=== PATIENT | male | born 1945 | race African-American/Black ===

== ENCOUNTER 2017-10-15 01:40 | Emergency (ER) | payer MEDICARE ==
[~2017-10-15] VITALS: Ht 190.5 cm; Wt 86.2 kg
[2017-10-15] MEDS ORDERED: Sodium Chloride 500ML 500 ML IV ONE (02:15)
[2017-10-15] MEDS ORDERED: LORazepam Inj 2mg/ml 1ml IV ONE (02:15)
[2017-10-15 02:25] VITALS: BP 153/98
[2017-10-15 02:58] LABS: BASOPHILS % (AUTO) 0.9 % (0.0-2.0); EOSINOPHILS % (AUTO) 0.5 % (0.0-3.0); HEMATOCRIT 44.9 % (42.0-52.0); HEMOGLOBIN 15.8 G/DL (14.2-18.0); LYMPHOCYTES % (AUTO) 12.8 % (20.0-45.0); MEAN CORPUSCULAR VOLUME 98 FL (80-99); MONOCYTES % (AUTO) 12.6 % (1.0-10.0); NEUTROPHILS % (AUTO) 73.2 % (45.0-75.0); PLATELET COUNT 103 K/UL (150-450); RED BLOOD COUNT 4.58 M/UL (4.70-6.10); RED CELL DISTRIBUTION WIDTH 10.3 % (11.6-14.8); WHITE BLOOD COUNT 8.5 K/UL (4.8-10.8)
[2017-10-15 03:02] LABS: APPEARANCE,URINE CLEAR; BILIRUBIN, URINE NEGATIVE (NEGATIVE); GLUCOSE, URINE (UA) NEGATIVE (NEGATIVE); KETONES,URINE NEGATIVE (NEGATIVE); LEUKOCYTE ESTERASE ,URINE 1+ (NEGATIVE); NITRITE,URINE NEGATIVE (NEGATIVE); PH,URINE 5 (4.5-8.0); PROTEIN,URINE 1+ (NEGATIVE); UROBILINOGEN,URINE 4 MG/DL (0.0-1.0)
[2017-10-15 03:14] LABS: COLOR,URINE YELLOW
[2017-10-15 03:16] LABS: CHLORIDE 95 MMOL/L (98-107); SODIUM 131 MMOL/L (136-145)
[2017-10-15 03:18] LABS: ANION GAP 9 mmol/L (5-15); BLOOD UREA NITROGEN 37 mg/dL (7-18); CALCIUM 9.7 MG/DL (8.5-10.1); CARBON DIOXIDE 27 MMOL/L (21-32); CREATININE 1.7 MG/DL (0.55-1.30); POTASSIUM 4.6 MMOL/L (3.5-5.1)
[2017-10-15 03:25] VITALS: BP 142/95
[2017-10-15 03:26] LABS: ALANINE AMINOTRANSFERASE 30 U/L (12-78); ALBUMIN 3.7 G/DL (3.4-5.0); ALBUMIN/GLOBULIN RATIO 0.7 (1.0-2.7); ALKALINE PHOSPHATASE 123 U/L (46-116); ASPARTATE AMINO TRANSFERASE 31 U/L (15-37); BILIRUBIN,TOTAL 1.5 MG/DL (0.2-1.0)
[2017-10-15 03:31] LABS: BILIRUBIN,DIRECT 0.6 MG/DL (0.0-0.3)
[2017-10-15] MEDS ORDERED: cefTRIAXone 1 GM in NS 55 ML IVPB ONE (04:15)
[2017-10-15 04:25] VITALS: BP 98/56
--- NOTE | 2017-10-15 04:34 | Emergency Room Report ---
History of Present Illness General Chief Complaint: General Complaint Source: Patient Present Illness HPI 72-year-old male presents ED for evaluation. Patient brought in by EMS. EMS states that patient appears very anxious and is speaking very quickly. Got into an argument with his mother on the phone tonight. Upon arrival patient denies any chest pain or shortness of breath. Denies hearing voices. Denies alcohol or drug use. No other aggravating relieving factors. Denies any other associated symptoms Allergies: Coded Allergies: No Known Allergies (Unverified , 10/15/17) Patient History Past Medical History: AFib Past Surgical History: none Pertinent Family History: none Social History: Denies: smoking, alcohol use, drug use Immunizations: UTD Reviewed Nursing Documentation: PMH: Agreed; PSxH: Agreed Nursing Documentation-PMH Past Medical History: No History, Except For Hx Cardiac Problems: Yes - A. Fib Review of Systems All Other Systems: negative except mentioned in HPI Physical Exam Vital Signs Date Time Temp Pulse Resp B/P (MAP) Pulse Ox O2 Delivery O2 Flow Rate FiO2 10/15/17 01:43 97.8 98 18 157/104 99 Room Air 97.9 Sp02 EP Interpretation: reviewed, normal General Appearance: no apparent distress, alert, GCS 15, non-toxic Head: normocephalic, atraumatic Eyes: bilateral eye normal inspection, bilateral eye PERRL ENT: hearing grossly normal, normal pharynx, no angioedema, normal voice Neck: full range of motion, supple/symm/no masses Respiratory: chest non-tender, lungs clear, normal breath sounds, speaking full sentences Cardiovascular #1: regular rate, rhythm, no edema Cardiovascular #2: 2+ carotid (R), 2+ carotid (L), 2+ radial (R), 2+ radial (L) , 2+ dorsalis pedis (R), 2+ dorsalis pedis (L) Gastrointestinal: normal bowel sounds, non tender, soft, non-distended, no guarding, no rebound Rectal: deferred Genitourinary: normal inspection, no CVA tenderness Musculoskeletal: back normal, gait/station normal, normal range of motion, non- tender Neurologic: alert, responsive, motor strength/tone normal, other - pressured speech Psychiatric: mood/affect normal, no suicidal/homicidal ideation, anxious Reflexes: 3+ bicep (R), 3+ bicep (L), 3+ tricep (R), 3+ tricep (L), 3+ knee (R) , 3+ knee (L) Skin: normal color, no rash, warm/dry, well hydrated Lymphatic: no adenopathy Medical Decision Making Diagnostic Impression: Primary Impression: Altered level of consciousness Additional Impression: ARF (acute renal failure) Qualified Codes: N17.9 - Acute kidney failure, unspecified ER Course Hospital Course 72-year-old male presents ED with pressured speech, altered to baseline Differential diagnoses include: psychosis, delerium, CVA, +ETOH, substance abuse Clinical course Patient placed on stretcher. on temporary staff accountant. After initial history and physical I ordered labs, EKG, chest x-ray, IVFs, CT Brain. ativan labs reviewed- no leukocytosis, hemoglobin/hematocrit ok, BUN/Cr elevated, UA + bacteria, troponins negative, Utox negative, ETOH negative EKG- NSR, repolarization abnormality interpreted by me Chest x-ray- cardiomegaly CT brain-unremarkable Patient had no nuchal rigidity. No fever. No focal neurological deficits or meningitis. Given Rocephin for UA. Spoke to nephew on the phone. He lives in [place]. States that patient is self-sufficient has lived in [place] on his own for the last 30 years. States that patient's behavior and mental status is fairly new and is very abnormal for the patient. Because of insurance patient will be transferred to [facility]. I feel this is a highly complex case requiring extensive working including EKG/Rhythm strip, Xray/CT/US, Blood/urine lab work, repeat exams while in ED, and administration of strong opiates/narcotics for pain control, admission to hospital or close patient follow up. Diagnosis - ALOC, ARF Transferred in serious condition Labs Test 10/15/17 02:20 10/15/17 02:35 White Blood Count 8.5 K/UL (4.8-10.8) Red Blood Count 4.58 M/UL (4.70-6.10) Hemoglobin 15.8 G/DL (14.2-18.0) Hematocrit 44.9 % (42.0-52.0) Mean Corpuscular Volume 98 FL (80-99) Mean Corpuscular Hemoglobin 34.4 PG (27.0-31.0) Mean Corpuscular Hemoglobin Concent 35.1 G/DL (32.0-36.0) Red Cell Distribution Width 10.3 % (11.6-14.8) Platelet Count 103 K/UL (150-450) Mean Platelet Volume 10.2 FL (6.5-10.1) Neutrophils (%) (Auto) 73.2 % (45.0-75.0) Lymphocytes (%) (Auto) 12.8 % (20.0-45.0) Monocytes (%) (Auto) 12.6 % (1.0-10.0) Eosinophils (%) (Auto) 0.5 % (0.0-3.0) Basophils (%) (Auto) 0.9 % (0.0-2.0) Urine Color Yellow Urine Appearance Clear Urine pH 5 (4.5-8.0) Urine Specific [place] 1.025 (1.005-1.035) Urine Protein 1+ (NEGATIVE) Urine Glucose (UA) Negative (NEGATIVE) Urine Ketones Negative (NEGATIVE) Urine Occult Blood 3+ (NEGATIVE) Urine Nitrite Negative (NEGATIVE) Urine Bilirubin Negative (NEGATIVE) Urine Urobilinogen 4 MG/DL (0.0-1.0) Urine Leukocyte Esterase 1+ (NEGATIVE) Urine RBC 10-15 /HPF (0 - 0) Urine WBC 0-2 /HPF (0 - 0) Urine Squamous Epithelial Cells None /LPF (NONE/OCC) Urine Bacteria Moderate /HPF (NONE) Sodium Level 131 MMOL/L (136-145) Potassium Level 4.6 MMOL/L (3.5-5.1) Chloride Level 95 MMOL/L (98-107) Carbon Dioxide Level 27 MMOL/L (21-32) Anion Gap 9 mmol/L (5-15) Blood Urea Nitrogen 37 mg/dL (7-18) Creatinine 1.7 MG/DL (0.55-1.30) Estimat Glomerular Filtration Rate mL/min (>60) Glucose Level 143 MG/DL (74-106) Calcium Level 9.7 MG/DL (8.5-10.1) Total Bilirubin 1.5 MG/DL (0.2-1.0) Direct Bilirubin 0.6 MG/DL (0.0-0.3) Aspartate Amino Transf (AST/SGOT) 31 U/L (15-37) Alanine Aminotransferase (ALT/SGPT) 30 U/L (12-78) Alkaline Phosphatase 123 U/L (46-116) Troponin I 0.004 ng/mL (0.000-0.056) Total Protein 8.9 G/DL (6.4-8.2) Albumin 3.7 G/DL (3.4-5.0) Globulin 5.2 g/dL Albumin/Globulin Ratio 0.7 (1.0-2.7) Salicylates Level < 0.2 ug/mL (2.8-20) Urine Opiates Screen Negative (NEGATIVE) Acetaminophen Level < 2 MCG/ML (10-30) Urine Barbiturates Screen Negative (NEGATIVE) Phencyclidine (PCP) Screen Negative (NEGATIVE) Urine Amphetamines Screen Negative (NEGATIVE) Urine Benzodiazepines Screen Negative (NEGATIVE) Urine Cocaine Screen Negative (NEGATIVE) Urine Marijuana (THC) Screen Negative (NEGATIVE) Serum Alcohol < 3 mg/dL EKG Diagnostic Results Rate: normal Rhythm: NSR ST Segments: other - repolarization abnormality ASA given to the pt in ED: No Rhythm Strip Diag. Results EP Interpretation: yes Rhythm: NSR, no PVC's, no ectopy Chest X-Ray Diagnostic Results Chest X-Ray Diagnostic Results : Chest X-Ray Ordered: Yes # of Views/Limited/Complete: 1 View Indication: Other - ams EP Interpretation: Yes Interpretation: no consolidation, no effusion, no pneumothorax, other - cardiomegaly Impression: Other - cardiomegaly Electronically Signed by: Electronically signed by Mikal Ventura MD CT/MRI/US Diagnostic Results CT/MRI/US Diagnostic Results : Imaging Test Ordered: CT Head Impression no acute process Last Vital Signs Date Time Temp Pulse Resp B/P (MAP) Pulse Ox O2 Delivery O2 Flow Rate FiO2 10/15/17 02:25 97.9 102 18 153/98 99 Room Air 97.9 Status: improved Disposition: XFER SHT-TRM HOSP Condition: Serious Scripts Unable to Obtain Active Prescriptions or Reported Meds Referrals: NOT CHOSEN IPA/,REFERRING (PCP) Mikal [place]ura MD Oct 15, 2017 04:34
[2017-10-15 05:25] VITALS: BP 130/70
[2017-10-15 05:35] VITALS: BP 130/70
--- NOTE | 2017-10-15 08:33 | Diagnostic Imaging Report ---
Indication: Altered mental status Technique: Continuous helical CT scanning of the head was performed utilizing automated exposure control without intravenous contrast material. Axial and coronal reconstructions were obtained. Comparison: None CT dose: Total DLP 1506.06 mGycm; CTDI vol 70.38 mGy Findings: There is no acute intracranial hemorrhage, mass effect or cortical edema. The ventricles, cisterns and sulci are within normal limits for age. Visualized mastoid air cells and paranasal sinuses are unremarkable. No focal lesions of the bony calvarium or soft tissues of the scalp are seen. Impression: No evidence of acute intracranial hemorrhage, mass effect or cortical edema. MRI may be obtained for more sensitive evaluation as clinically indicated. This corresponds with the statrad preliminary report. The CT scanner at [facility] is accredited by the [employer] and the scans are performed using protocols designed to limit radiation exposure to as low as reasonably achievable to attain images of sufficient resolution adequate for diagnostic evaluation.
--- NOTE | 2017-10-15 10:27 | Diagnostic Imaging Report ---
Indication: Altered mental status Technique: XRAY Chest 1v Comparison: None Findings: Heart is enlarged. There is no definite focal airspace consolidation, pleural effusion or pneumothorax. No evidence of alveolar edema. There is scoliosis and degenerative change of the spine. No acute osseous abnormality seen. Impression: Cardiomegaly. No focal airspace consolidation, pleural effusion or pneumothorax. No evidence of alveolar edema.
== END 2017-10-15 05:35 | disposition short-term general hospital (02) ==
LOC: EDBD 01:40 → EMR 02:28
DX: R41.82 Altered mental status, unspecified (principal); N17.9 Acute kidney failure, unspecified; I48.91 Unspecified atrial fibrillation
CPT/HCPCS: 36415; 70450; 71045; 80053; 80307; 81003; 82248; 84484; 85025; 87086; 93005; 96361; 96365; 96375; 99284; G0480; J0696; J7040; 80329; 96360; 96374

== ENCOUNTER 2017-10-15 09:25 | Emergency (ER) | payer MEDICARE ==
[~2017-10-15] VITALS: Ht 182.9 cm; Wt 90.7 kg
[2017-10-15 09:27] VITALS: BP 140/70
[2017-10-15 10:05] LABS: HEMATOCRIT 43.6 % (42.0-52.0); HEMOGLOBIN 14.9 G/DL (14.2-18.0); MEAN CORPUSCULAR VOLUME 100 FL (80-99); PLATELET COUNT 93 K/UL (150-450); RED BLOOD COUNT 4.35 M/UL (4.70-6.10); RED CELL DISTRIBUTION WIDTH 10.5 % (11.6-14.8); WHITE BLOOD COUNT 7.1 K/UL (4.8-10.8)
[2017-10-15 10:14] LABS: ANION GAP 6 mmol/L (5-15); BLOOD UREA NITROGEN 30 mg/dL (7-18); CALCIUM 8.9 MG/DL (8.5-10.1); CARBON DIOXIDE 28 MMOL/L (21-32); CHLORIDE 99 MMOL/L (98-107); CREATININE 1.3 MG/DL (0.55-1.30); SODIUM 133 MMOL/L (136-145)
[2017-10-15 10:22] LABS: APPEARANCE,URINE CLEAR; BILIRUBIN, URINE NEGATIVE (NEGATIVE); COLOR,URINE BROWN; GLUCOSE, URINE (UA) 1+ (NEGATIVE); KETONES,URINE NEGATIVE (NEGATIVE); LEUKOCYTE ESTERASE ,URINE NEGATIVE (NEGATIVE); NITRITE,URINE NEGATIVE (NEGATIVE); PH,URINE 5 (4.5-8.0); PROTEIN,URINE NEGATIVE (NEGATIVE); UROBILINOGEN,URINE 4 MG/DL (0.0-1.0)
--- NOTE | 2017-10-15 10:24 | Diagnostic Imaging Report ---
Indication: Altered mental status Technique: Continuous helical CT scanning of the head was performed utilizing automated exposure control without intravenous contrast material. Axial and coronal reconstructions were obtained. Comparison: Earlier the same day (10/15/2017, 2:31) CT dose: Total DLP 1516.62 mGycm; CTDI vol 70.38 mGy Findings: There is no acute intracranial hemorrhage, mass effect or cortical edema. The ventricles, cisterns and sulci are within normal limits for age and unchanged compared to the prior exam. Visualized mastoid air cells and paranasal sinuses are unremarkable. No focal lesions of the bony calvarium or soft tissues of the scalp are seen. IMPRESSION: No evidence of acute intracranial hemorrhage, mass effect or cortical edema. MRI may be obtained for more sensitive evaluation as clinically indicated. No significant interval change from exam earlier the same day. The CT scanner at [facility] is accredited by the [employer] and the scans are performed using protocols designed to limit radiation exposure to as low as reasonably achievable to attain images of sufficient resolution adequate for diagnostic evaluation.
[2017-10-15 10:27] LABS: ALANINE AMINOTRANSFERASE 28 U/L (12-78); ALBUMIN 3.3 G/DL (3.4-5.0); ALBUMIN/GLOBULIN RATIO 0.7 (1.0-2.7); ALKALINE PHOSPHATASE 112 U/L (46-116); ASPARTATE AMINO TRANSFERASE 31 U/L (15-37); BILIRUBIN,TOTAL 1.3 MG/DL (0.2-1.0)
[2017-10-15 10:38] LABS: BILIRUBIN,DIRECT 0.6 MG/DL (0.0-0.3)
[2017-10-15 10:45] VITALS: BP 132/61
--- NOTE | 2017-10-15 11:45 | Emergency Room Report ---
History of Present Illness General Chief Complaint: Behavioral Complaint Source: Patient Present Illness HPI This patient was discharged from [facility] this morning. The patient is brought in by EMS. Apparently, the patient has been feeling anxious. He states he was speaking with his niece on the phone and she called EMS to bring him to the hospital. The patient keeps talking about a prostate problem. The patient denies chest pain or shortness of breath. Patient denies abdominal pain. He was diagnosed with a urinary tract infection and given Rocephin this morning. I discovered this when I spoke with a [facility] physician entry level sales representative on the phone. The patient has no other complaints. Allergies: Coded Allergies: No Known Allergies (Unverified , 10/15/17) Patient History Past Medical History: see triage record, HTN, AFib Social History: Denies: smoking, alcohol use, drug use Reviewed Nursing Documentation: PMH: Agreed; PSxH: Agreed Nursing Documentation-PMH Past Medical History: No History, Except For Hx Cardiac Problems: Yes - A. Fib Hx Hypertension: Yes Review of Systems All Other Systems: negative except mentioned in HPI Physical Exam Vital Signs Date Time Temp Pulse Resp B/P (MAP) Pulse Ox O2 Delivery O2 Flow Rate FiO2 10/15/17 09:19 60 18 140/70 99 Room Air 10/15/17 10:45 98.5 98.5 Sp02 EP Interpretation: reviewed, normal General Appearance: no apparent distress, alert, GCS 15, non-toxic Head: normocephalic, atraumatic Eyes: bilateral eye normal inspection, bilateral eye PERRL ENT: hearing grossly normal, normal pharynx, no angioedema, normal voice Neck: full range of motion, supple/symm/no masses Respiratory: chest non-tender, lungs clear, normal breath sounds, no respiratory distress, no retraction, no accessory muscle use, speaking full sentences Cardiovascular #1: regular rate, rhythm, no edema Gastrointestinal: normal bowel sounds, non tender, soft, non-distended, no guarding, no rebound Rectal: deferred Musculoskeletal: back normal, gait/station normal, normal range of motion, non- tender Neurologic: alert, oriented x3, responsive, motor strength/tone normal, sensory intact, speech normal Psychiatric: mood/affect normal, no suicidal/homicidal ideation Skin: normal color, no rash, warm/dry, well hydrated Medical Decision Making Diagnostic Impression: Primary Impression: UTI (urinary tract infection) Additional Impression: Behavioral change ER Course This patient has failed outpatient treatment. The patient may have some delirium related to a urinary tract infection. He had been given Rocephin at [facility] this morning. He does not require re-dosing at this time. He lives alone and is unable to function at this point. Possibly this patient needs to undergo psychiatric evaluation versus treatment of his urinary tract infection as an inpatient. The patient was nontoxic. The patient is afebrile. The patient has a negative drug screen and normal head CT. I do not suspect substance abuse. This patient is a [facility] patient was transferred back to [facility] for further management and disposition. Laboratory Tests Test 10/15/17 09:46 10/15/17 10:05 White Blood Count 7.1 K/UL (4.8-10.8) Red Blood Count 4.35 M/UL (4.70-6.10) L Hemoglobin 14.9 G/DL (14.2-18.0) Hematocrit 43.6 % (42.0-52.0) Mean Corpuscular Volume 100 FL (80-99) H Mean Corpuscular Hemoglobin 34.4 PG (27.0-31.0) H Mean Corpuscular Hemoglobin Concent 34.3 G/DL (32.0-36.0) Red Cell Distribution Width 10.5 % (11.6-14.8) L Platelet Count 93 K/UL (150-450) L Mean Platelet Volume 10.2 FL (6.5-10.1) H Neutrophils (%) (Auto) % (45.0-75.0) Lymphocytes (%) (Auto) % (20.0-45.0) Monocytes (%) (Auto) % (1.0-10.0) Eosinophils (%) (Auto) % (0.0-3.0) Basophils (%) (Auto) % (0.0-2.0) Differential Total Cells Counted 100 Neutrophils % (Manual) 64 % (45-75) Lymphocytes % (Manual) 22 % (20-45) Monocytes % (Manual) 12 % (1-10) H Eosinophils % (Manual) 1 % (0-3) Basophils % (Manual) 1 % (0-2) Band Neutrophils 0 % (0-8) Platelet Estimate Decreased L Platelet Morphology Normal Red Blood Cell Morphology Normal Sodium Level 133 MMOL/L (136-145) L Potassium Level 4.0 MMOL/L (3.5-5.1) Chloride Level 99 MMOL/L (98-107) Carbon Dioxide Level 28 MMOL/L (21-32) Anion Gap 6 mmol/L (5-15) Blood Urea Nitrogen 30 mg/dL (7-18) H Creatinine 1.3 MG/DL (0.55-1.30) Estimate Glomerular Filtration Rate mL/min (>60) Glucose Level 100 MG/DL (74-106) Calcium Level 8.9 MG/DL (8.5-10.1) Total Bilirubin 1.3 MG/DL (0.2-1.0) H Direct Bilirubin 0.6 MG/DL (0.0-0.3) H Aspartate Amino Transferase (AST) 31 U/L (15-37) Alanine Aminotransferase (ALT) 28 U/L (12-78) Alkaline Phosphatase 112 U/L (46-116) Troponin I 0.017 ng/mL (0.000-0.056) Total Protein 8.2 G/DL (6.4-8.2) Albumin 3.3 G/DL (3.4-5.0) L Globulin 4.9 g/dL Albumin/Globulin Ratio 0.7 (1.0-2.7) L Thyroid Stimulating Hormone (TSH) 0.870 uiU/mL (0.358-3.740) Serum Alcohol < 3 mg/dL Urine Color Brown Urine Appearance Clear Urine pH 5 (4.5-8.0) Urine Specific [place] 1.025 (1.005-1.035) Urine Protein Negative (NEGATIVE) Urine Glucose (UA) 1+ (NEGATIVE) H Urine Ketones Negative (NEGATIVE) Urine Occult Blood 5+ (NEGATIVE) H Urine Nitrite Negative (NEGATIVE) Urine Bilirubin Negative (NEGATIVE) Urine Urobilinogen 4 MG/DL (0.0-1.0) H Urine Leukocyte Esterase Negative (NEGATIVE) Urine RBC Tntc /HPF (0 - 0) H Urine WBC 0-2 /HPF (0 - 0) Urine Squamous Epithelial Cells Occasional /LPF Urine Bacteria Occasional /HPF (NONE) Urine Opiates Screen Negative (NEGATIVE) Urine Barbiturates Screen Negative (NEGATIVE) Phencyclidine (PCP) Screen Negative (NEGATIVE) Urine Amphetamines Screen Negative (NEGATIVE) Urine Benzodiazepines Screen Negative (NEGATIVE) Urine Cocaine Screen Negative (NEGATIVE) Urine Marijuana (THC) Screen Negative (NEGATIVE) EKG Diagnostic Results Rate: normal Rhythm: other - A.fib ST Segments: no acute changes Rhythm Strip Diag. Results EP Interpretation: yes Rate: 60's Rhythm: no PVC's, no ectopy, other - A.fib CT/MRI/US Diagnostic Results CT/MRI/US Diagnostic Results : Imaging Test Ordered: CT head Impression No acute findings. See official report. Last Vital Signs Date Time Temp Pulse Resp B/P (MAP) Pulse Ox O2 Delivery O2 Flow Rate FiO2 10/15/17 10:45 98.5 68 15 132/61 96 Room Air 98.5 Disposition: XFER SHT-TRM HOSP Condition: Stable Scripts Unable to Obtain Active Prescriptions or Reported Meds Referrals: [facility] (PCP) Debby Peralta DO Oct 15, 2017 11:45
[2017-10-15 11:54] VITALS: BP 110/67
--- NOTE | 2017-10-15 12:27 | Cardiology Report ---
APPROVED REPORT EKG Measurement Heart [id number] A. Fib Moderate voltage criteria for LVH, may be normal variant Borderline ECG
[2017-10-15 13:01] VITALS: BP 110/67
== END 2017-10-15 13:12 | disposition short-term general hospital (02) ==
LOC: EDBD 09:25 → EMR 10:14
DX: N39.0 Urinary tract infection, site not specified (principal); F91.9 Conduct disorder, unspecified; R41.82 Altered mental status, unspecified; I48.91 Unspecified atrial fibrillation; I10 Essential (primary) hypertension
CPT/HCPCS: 36415; 70450; 80053; 80307; 81003; 82248; 84443; 84484; 85007; 85025; 87081; 93005; 99284; G0480; 80329

== ENCOUNTER 2018-02-17 07:40 | Inpatient (IN) | payer MEDICARE ==
[~2018-02-17] VITALS: Ht 190.5 cm; Wt 98.0 kg
[2018-02-17] VITALS (17 sets, daily range): BP systolic 79–119; BP diastolic 35–93
[2018-02-17 08:33] LABS: HEMATOCRIT 30.2 % (42.0-52.0); HEMOGLOBIN 10.2 G/DL (14.2-18.0); MEAN CORPUSCULAR VOLUME 102 FL (80-99); PLATELET COUNT 97 K/UL (150-450); RED BLOOD COUNT 2.97 M/UL (4.70-6.10); RED CELL DISTRIBUTION WIDTH 10.4 % (11.6-14.8); WHITE BLOOD COUNT 8.5 K/UL (4.8-10.8)
[2018-02-17 08:38] LABS: INR 1.5 (0.9-1.1)
[2018-02-17 08:39] LABS: ANION GAP 9 mmol/L (5-15); BLOOD UREA NITROGEN 24 mg/dL (7-18); CALCIUM 8.5 MG/DL (8.5-10.1); CARBON DIOXIDE 23 MMOL/L (21-32); CHLORIDE 106 MMOL/L (98-107); CREATININE 1.3 MG/DL (0.55-1.30); POTASSIUM 4.5 MMOL/L (3.5-5.1); SODIUM 138 MMOL/L (136-145)
[2018-02-17 08:51] LABS: ALANINE AMINOTRANSFERASE 15 U/L (12-78); ALBUMIN 2.8 G/DL (3.4-5.0); ALBUMIN/GLOBULIN RATIO 0.8 (1.0-2.7); ALKALINE PHOSPHATASE 95 U/L (46-116); ASPARTATE AMINO TRANSFERASE 19 U/L (15-37); BILIRUBIN,TOTAL 0.9 MG/DL (0.2-1.0); CREATINE KINASE 62 U/L (26-308)
--- NOTE | 2018-02-17 09:17 | Emergency Room Report ---
History of Present Illness General Chief Complaint: Gastrointestinal Bleed Source: Patient Present Illness HPI Patient is brought in by EMS for lower GI bleeding. He had colon resection and a polyp/adenocarcinoma resection at [facility]. No bleeding since then. He started bleeding this morning and according to paramedics passed about 100 to 150 mils of blood. He was also found him hypotensive and near syncopal. They gave him a fluid bolus in the field. He had improved vital signs laying down and after the fluid bolus. No abdominal pain. He has never needed blood in the past. The patient is on Pradaxa for atrial fibrillation. He has an implanted defibrillator and pacemaker. He denies any chest pain, shortness of breath or palpitations. Denies vomiting. He was dizzy when they tried is sent him up. No dysuria, headache, rashes, joint pain, back pain. 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 Reviewed Nursing Documentation: PMH: Agreed; PSxH: Agreed Nursing Documentation-PMH Past Medical History: No History, Except For Hx Cardiac Problems: Yes - AFIB Hx Hypertension: Yes Hx Pacemaker: Yes Review of Systems All Other Systems: negative except mentioned in HPI Physical Exam Vital Signs Date Time Temp Pulse Resp B/P (MAP) Pulse Ox O2 Delivery O2 Flow Rate FiO2 02/17/18 07:42 97.4 66 16 91/54 97 Room Air 97.3 Sp02 EP Interpretation: reviewed, normal General Appearance: well appearing, no apparent distress, GCS 15 Head: normocephalic Eyes: bilateral eye PERRL, bilateral eye conjunctivae pale ENT: moist mucus membranes Neck: supple Respiratory: lungs clear, other - pacer L Cardiovascular #1: regular rate, rhythm Cardiovascular #2: 2+ radial (R) Gastrointestinal: normal inspection, normal bowel sounds, non tender, no mass, non-distended Rectal: heme positive stool - blood Musculoskeletal: back normal, gait/station normal, normal range of motion Neurologic: alert, oriented x3, grossly normal Psychiatric: mood/affect normal Skin: warm/dry, pallor Procedures Critical Care Time Critical Care Time Total Critical Care Time: 120 min bedside evaluation and treatment excludes procedures (EKG). Reason for critical care: hemorrhagic shock, blood transfusion, repeated evaluations, FFP transfusions Possible complications: hypotension, hypertension, CO, shock, arrhythmias, metabolic acidosis, end organ damage, respiratory failure. Interventions: NS, blood, FFP, attempt to get Pradaxa antidote Course: Patient presents with lower GI bleed post colon resection 02/06. Hypotensive and improved with fluids. Bloods called for. Elevated lactate which improved with fluids. Discussion with pharmacy for antidote to Pradaxa - N/A now. Discussion with Dr. Daly and Darrel. Initially arrange for transfer with CCRT for continued blood. Several episodes of vomiting and syncope improved with laying supine. Arrange for transfusion. Discussed with blood bank. Improved with initial FFP and blood. Passed 300 ml bloody stool. More blood requested and started with second IV. Too unstable to transfer. Discussion with surgeon and admitting MD. Consideration of CT abdomen, but too unstable. Admitted ICU. Consultations: nursing staff, EMS, pharmacy, surgeon, admitting MD, [facility] , blood bank Performed by: Dr. Sierra Tolerated well condition = critical Medical Decision Making Diagnostic Impression: Primary Impression: Lower gastrointestinal hemorrhage Additional Impressions: Alteration in anticoagulation Atrial fibrillation Qualified Codes: I48.2 - Chronic atrial fibrillation Hemorrhagic shock ER Course Patient with lower GI bleed and hypotension post-colon resection on anticoagulation. Differential includes bleeding from polypectomy site, other lower GI bleed, hemorrhagic shock, anticoagulation amongst others. The patient needs to be assessed for whether he needs blood transfusion and reversal of Pradaxa at this time. He will be evaluated with EKG, chest x-ray abdominal films and labs. We will be ready to transfuse if necessary. Clinically he does not present with perforation and the abdominal exam is against needing surgery at this time. EKG with atrial fibrillation nonspecific ST-T wave changes. H&H is 10.2/30.2. White count is normal. Platelets slightly low. INR is 1.5. CMP with elevated BUN/creatinine. Initial lactic acid is 3.4. Chest x-ray with pacemaker otherwise clear. Abdominal series series with no free air and some dilated loops of bowel but no evidence of obstruction. Patient's blood pressures improved with IV hydration. No further bleeding is evidenced at the moment. Discussed with Dr. Daly at [facility]. 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 Pre Hgb was 12.6. Also INR pre was 1.3. Discussed risks and benefits of blood transfusion with patient. Transfusing FFP also. Also called Pharmacy to see about availability of [employer]xib[employer]. Repeat H/H prior to transfusion = 9.4/28.2. Lactate normal. Patient vomited and passed out. Bilious material. Zofran ordered. Still no abdominal pain. No further bleeding. Transient hypotension, improved laying flat. Transient hypotension associated with vomiting resolved with infusion of FFP and laying flat. Discussed with Dr. Rojo. Arranging CCRT with RN so blood can be given during transport. Patient had vomiting episode. After was transiently unresponsive. BP low during that time. Better supine. Another NS bolus started. Passed 200 cc blood per rectum. Second IV started (had been requested). More blood and FFP ordered. Too ill to transfer. Discussed with Dr. Alba and Dr. Dahl. Admit ICU. Another episode of hypotension associated with vomiting. Improved laying flat. Increased rate of transfusion. Consideration of CT abd, but patient needs blood and cardiac monitoring. Condition critical. Laboratory Tests Test 02/17/18 08:00 02/17/18 09:25 White Blood Count 8.5 K/UL (4.8-10.8) 10.4 K/UL (4.8-10.8) Red Blood Count 2.97 M/UL (4.70-6.10) L 2.80 M/UL (4.70-6.10) L Hemoglobin 10.2 G/DL (14.2-18.0) L 9.4 G/DL (14.2-18.0) L Hematocrit 30.2 % (42.0-52.0) L 28.2 % (42.0-52.0) L Mean Corpuscular Volume 102 FL (80-99) H 101 FL (80-99) H Mean Corpuscular Hemoglobin 34.3 PG (27.0-31.0) H 33.5 PG (27.0-31.0) H Mean Corpuscular Hemoglobin Concent 33.8 G/DL (32.0-36.0) 33.2 G/DL (32.0-36.0) Red Cell Distribution Width 10.4 % (11.6-14.8) L 10.3 % (11.6-14.8) L Platelet Count 97 K/UL (150-450) L 99 K/UL (150-450) L Mean Platelet Volume 9.0 FL (6.5-10.1) 9.8 FL (6.5-10.1) Neutrophils (%) (Auto) % (45.0-75.0) % (45.0-75.0) Lymphocytes (%) (Auto) % (20.0-45.0) % (20.0-45.0) Monocytes (%) (Auto) % (1.0-10.0) % (1.0-10.0) Eosinophils (%) (Auto) % (0.0-3.0) % (0.0-3.0) Basophils (%) (Auto) % (0.0-2.0) % (0.0-2.0) Differential Total Cells Counted 100 100 Neutrophils % (Manual) 83 % (45-75) H 82 % (45-75) H Lymphocytes % (Manual) 13 % (20-45) L 8 % (20-45) L Monocytes % (Manual) 4 % (1-10) 10 % (1-10) Eosinophils % (Manual) 0 % (0-3) 0 % (0-3) Basophils % (Manual) 0 % (0-2) 0 % (0-2) Band Neutrophils 0 % (0-8) 0 % (0-8) Platelet Estimate Decreased L Decreased L Platelet Morphology Normal Normal Macrocytosis 1+ 1+ Prothrombin Time 15.4 SEC (9.30-11.50) H Prothrombin Time INR 1.5 (0.9-1.1) H PTT 31 SEC (23-33) Sodium Level 138 MMOL/L (136-145) Potassium Level 4.5 MMOL/L (3.5-5.1) Chloride Level 106 MMOL/L (98-107) Carbon Dioxide Level 23 MMOL/L (21-32) Anion Gap 9 mmol/L (5-15) Blood Urea Nitrogen 24 mg/dL (7-18) H Creatinine 1.3 MG/DL (0.55-1.30) Estimate Glomerular Filtration Rate mL/min (>60) Glucose Level 165 MG/DL (74-106) H Lactic Acid Level 3.40 mmol/L (0.4-2.0) H 1.50 mmol/L (0.66-2.22) Calcium Level 8.5 MG/DL (8.5-10.1) Total Bilirubin 0.9 MG/DL (0.2-1.0) Aspartate Amino Transferase (AST) 19 U/L (15-37) Alanine Aminotransferase (ALT) 15 U/L (12-78) Alkaline Phosphatase 95 U/L (46-116) Total Creatine Kinase 62 U/L (26-308) Troponin I 0.016 ng/mL (0.000-0.056) Total Protein 6.5 G/DL (6.4-8.2) Albumin 2.8 G/DL (3.4-5.0) L Globulin 3.7 g/dL Albumin/Globulin Ratio 0.8 (1.0-2.7) L Lipase 57 U/L (73-393) L EKG Diagnostic Results Rate: normal Rhythm: other - a fib ST Segments: other - NSSTTW changes Rhythm Strip Diag. Results EP Interpretation: yes Rhythm: no PVC's, no ectopy, other - A fib rate 95 Chest X-Ray Diagnostic Results Chest X-Ray Diagnostic Results : Chest X-Ray Ordered: Yes # of Views/Limited/Complete: 1 View Indication: Other EP Interpretation: Yes Interpretation: no consolidation, no effusion, no pneumothorax, other - pacer Impression: No acute disease Electronically Signed by: . Electronic Other X-Ray Diagnostic Results Other X-Ray Diagnostic Results : X-Ray ordered: Abdomen # of Views/Limited Vs Complete: 2 View Indication: Other EP Interpretation: Yes Interpretation: nonspecific bowel gas, no sbo, other - no free air Impression: Other Electronically Signed by: Electronically signed by Gt Sierra MD Last Vital Signs Date Time Temp Pulse Resp B/P (MAP) Pulse Ox O2 Delivery O2 Flow Rate FiO2 02/17/18 20:12 3.0 02/17/18 20:00 Nasal Cannula 02/17/18 20:00 97.9 73 28 94/48 (63) 100 97.9 Status: improved Disposition: ADMITTED INPATIENT Condition: Critical Scripts Unable to Obtain Active Prescriptions or Reported Meds Referrals: NOT CHOSEN MICKY/,REFERRING (PCP) Gt Sierra M.D. Feb 17, 2018 09:17
--- NOTE | 2018-02-17 09:26 | Diagnostic Imaging Report ---
EXAM: XR Chest, 1 View CLINICAL HISTORY: BLD TECHNIQUE: Frontal view of the chest. COMPARISON: Chest x-ray 10/15/17 FINDINGS: Lungs: Unremarkable. No consolidation. Pleural space: Unremarkable. No pneumothorax. Heart: Unremarkable. No cardiomegaly. Mediastinum: Unremarkable. Bones/joints: Unremarkable. Tubes, lines and devices: Cardiac pacemaker. IMPRESSION: No acute findings.
--- NOTE | 2018-02-17 09:29 | Diagnostic Imaging Report ---
EXAM: XR Abdomen, 1 Views CLINICAL HISTORY: BLD TECHNIQUE: Frontal view of the abdomen/pelvis. COMPARISON: No relevant prior studies available. FINDINGS: Gastrointestinal tract: Gaseous distended small bowel and colon. Transverse colon is distended up to 6.5 cm. Maybe an ileus versus obstruction. Bones/joints: Degenerative changes of the spine and bilateral hips. IMPRESSION: Gaseous distended small bowel and colon. Transverse colon is distended up to 6.5 cm. Maybe an ileus versus obstruction.
[2018-02-17 09:48] LABS: HEMATOCRIT 28.2 % (42.0-52.0); HEMOGLOBIN 9.4 G/DL (14.2-18.0); MEAN CORPUSCULAR VOLUME 101 FL (80-99); PLATELET COUNT 99 K/UL (150-450); RED CELL DISTRIBUTION WIDTH 10.3 % (11.6-14.8); WHITE BLOOD COUNT 10.4 K/UL (4.8-10.8)
[2018-02-17 13:28] LABS: APPEARANCE,URINE CLEAR; BILIRUBIN, URINE NEGATIVE (NEGATIVE); GLUCOSE, URINE (UA) NEGATIVE (NEGATIVE); KETONES,URINE NEGATIVE (NEGATIVE); LEUKOCYTE ESTERASE ,URINE 1+ (NEGATIVE); NITRITE,URINE NEGATIVE (NEGATIVE); PH,URINE 5 (4.5-8.0); PROTEIN,URINE 1+ (NEGATIVE); UROBILINOGEN,URINE 1 MG/DL (0.0-1.0)
[2018-02-17 13:41] LABS: COLOR,URINE YELLOW
[2018-02-17] MEDS ORDERED: Atropine Inj 1mg/10ml Syr IVP SCH (16:32)
[2018-02-17 18:10] LABS: HEMATOCRIT 23.4 % (42.0-52.0); HEMOGLOBIN 8.2 G/DL (14.2-18.0); LYMPHOCYTES % (AUTO) 7.4 % (20.0-45.0); MEAN CORPUSCULAR VOLUME 100 FL (80-99); NEUTROPHILS % (AUTO) 85.6 % (45.0-75.0); PLATELET COUNT 79 K/UL (150-450); RED BLOOD COUNT 2.35 M/UL (4.70-6.10); RED CELL DISTRIBUTION WIDTH 13.2 % (11.6-14.8); WHITE BLOOD COUNT 13.1 K/UL (4.8-10.8)
[2018-02-17 18:11] LABS: BASOPHILS % (AUTO) 0.2 % (0.0-2.0); MONOCYTES % (AUTO) 6.8 % (1.0-10.0)
[2018-02-17] MEDS ORDERED: Fleet's Enema 133ml RECTAL SCH ×2 (18:42→19:10)
[2018-02-17] MEDS ORDERED: Nulytely 4L ORAL SCH (19:00)
[2018-02-17] MEDS ORDERED: Phytonadione 10 MG in D5W 55 ML IVPB SCH (20:00)
--- NOTE | 2018-02-17 20:18 | General Progress Note ---
Progress Note Progress Note Surgery: full consult note to follow call to see patient for Lower GI bleed Discussed with GI From report/history had Lower GI procedure approximately 10 days ago at [facility] ( flex sig w/ excision of rectal? polyp with closure) Did well post op. Resumed anticoagulation Pradaxa few days ago Noted BRBPR this AM at 06:00. Since multiple LARGE bloody BM Tachy at times, Bernard at times, Hypotensive. Transfused 3 PRBC, 2 FFP, pending platelets, given vit K At bedside patient positioned and anoscopy performed. >800cc blood evacuated upon insertion of anoscope. Once evacuated rectal vault suctioned. Noted Surgical sutures at anal verge into rectal vault in the posterior midline / left. venous oozing and arterial oozing noted from suture line. Rectal vault/ anus packed with gauze for hemostasis. will actively resuscitate patient in ICU. will re-evaluate in a few hours. need to ensure that bleeding is from suture line or if any procedure done higher up. awaiting reports/chart from [facility]. Currently patient stable. HR in the 80's. BP now 100/46. AAOx3. Check labs now. thank you Jordan Alba Feb 17, 2018 20:18
[2018-02-17] MEDS ORDERED: Lidocaine 1% 10mg/ml/Epi 0.005mg/ml 30ml vial INJ ONE (20:30)
--- NOTE | 2018-02-17 20:31 | General Progress Note ---
Assessment/Plan Assessment/Plan GI CONSULT Discussed patient's history and data with RN and PMD. Initially planned for an emergency colonoscopy for ongoing GI bleeding. Placed a call to [facility] and discussed with ER ([phone]) Patient (Latty MR [id number]) had a flexible sigmoidoscopy by Dr. Laurie Wong on 02/06/18 A large rectal polyp was excised and the polypectomy site was sutured Pathology showed a 2.1 x 1.2 x 0.2 cm polyp, with "squamoglandular tissue" seen on pathology Discussed with Dr. Alba who will perform a trans-anal evaluation and repair of bleeding site. Orders for transfusion written. Will monitor and follow Thank you. Viviana Quinn MD Subjective Allergies: Coded Allergies: No Known Allergies (Unverified , 10/15/17) Objective Last 24 Hour Vital Signs Date Time Temp Pulse Resp B/P (MAP) Pulse Ox O2 Delivery O2 Flow Rate FiO2 02/17/18 20:12 3.0 02/17/18 18:00 80 25 84/49 (61) 100 02/17/18 17:00 93 20 86/60 (69) 100 02/17/18 16:11 Nasal Cannula 3.0 02/17/18 16:00 98.1 45 21 103/49 (67) 100 98.1 02/17/18 15:47 98.2 57 23 86/55 100 Room Air 98.2 02/17/18 15:45 98.2 57 23 86/55 100 Room Air 98.2 02/17/18 14:50 98.0 68 28 99/76 100 Room Air 98.0 02/17/18 14:25 98.4 59 28 79/35 100 Room Air 98.4 02/17/18 14:10 98.0 61 24 85/52 100 Room Air 98.0 02/17/18 13:05 97.7 104 26 117/55 100 Room Air 97.7 02/17/18 13:05 97.7 101 29 97.7 02/17/18 12:50 98.2 72 20 112/70 100 Room Air 98.2 02/17/18 11:50 97.4 60 20 102/52 100 Room Air 97.4 02/17/18 10:49 97.0 87 18 103/63 100 Room Air 97.0 02/17/18 09:02 97.6 88 21 117/60 100 Room Air 97.6 02/17/18 07:42 97.4 66 16 91/54 97 Room Air 97.3 Laboratory Tests 02/17/18 08:00: White Blood Count 8.5, Red Blood Count 2.97L, Hemoglobin 10.2L, Hematocrit 30.2L , Mean Corpuscular Volume 102H, Mean Corpuscular Hemoglobin 34.3H, Mean Corpuscular Hemoglobin Concent 33.8, Red Cell Distribution Width 10.4L, Platelet Count 97L, Mean Platelet Volume 9.0, Neutrophils (%) (Auto) , Lymphocytes (%) (Auto) , Monocytes (%) (Auto) , Eosinophils (%) (Auto) , Basophils (%) (Auto) , Differential Total Cells Counted 100, Neutrophils % ( Manual) 83H, Lymphocytes % (Manual) 13L, Monocytes % (Manual) 4, Eosinophils % ( Manual) 0, Basophils % (Manual) 0, Band Neutrophils 0, Platelet Estimate DecreasedL, Platelet Morphology Normal, Macrocytosis 1+, Prothrombin Time 15.4H , Prothromb Time International Ratio 1.5H, Activated Partial Thromboplast Time 31, Sodium Level 138, Potassium Level 4.5, Chloride Level 106, Carbon Dioxide Level 23, Anion Gap 9, Blood Urea Nitrogen 24H, Creatinine 1.3, Estimat Glomerular Filtration Rate , Glucose Level 165H, Lactic Acid Level 3.40H, Calcium Level 8.5, Total Bilirubin 0.9, Aspartate Amino Transf (AST/SGOT) 19, Alanine Aminotransferase (ALT/SGPT) 15, Alkaline Phosphatase 95, Total Creatine Kinase 62, Troponin I 0.016, Total Protein 6.5, Albumin 2.8L, Globulin 3.7, Albumin/Globulin Ratio 0.8L, Lipase 57L 02/17/18 09:25: White Blood Count 10.4, Red Blood Count 2.80L, Hemoglobin 9.4L, Hematocrit 28.2L , Mean Corpuscular Volume 101H, Mean Corpuscular Hemoglobin 33.5H, Mean Corpuscular Hemoglobin Concent 33.2, Red Cell Distribution Width 10.3L, Platelet Count 99L, Mean Platelet Volume 9.8, Neutrophils (%) (Auto) , Lymphocytes (%) (Auto) , Monocytes (%) (Auto) , Eosinophils (%) (Auto) , Basophils (%) (Auto) , Differential Total Cells Counted 100, Neutrophils % ( Manual) 82H, Lymphocytes % (Manual) 8L, Monocytes % (Manual) 10, Eosinophils % ( Manual) 0, Basophils % (Manual) 0, Band Neutrophils 0, Platelet Estimate DecreasedL, Platelet Morphology Normal, Macrocytosis 1+, Lactic Acid Level 1.50 02/17/18 13:20: Urine Color Yellow, Urine Appearance Clear, Urine pH 5, Urine Specific [place] 1.025, Urine Protein 1+H, Urine Glucose (UA) Negative, Urine Ketones Negative, Urine Blood Negative, Urine Nitrite Negative, Urine Bilirubin Negative, Urine Urobilinogen 1H, Urine Leukocyte Esterase 1+H, Urine RBC 0, Urine WBC 0-2, Urine Squamous Epithelial Cells Occasional, Urine Bacteria Occasional, Urine Mucus Occasional 02/17/18 17:40: White Blood Count 13.1H, Red Blood Count 2.35L, Hemoglobin 8.2L, Hematocrit 23.4L, Mean Corpuscular Volume 100H, Mean Corpuscular Hemoglobin 34.7H, Mean Corpuscular Hemoglobin Concent 34.8, Red Cell Distribution Width 13.2, Platelet Count 79L, Mean Platelet Volume 7.8, Neutrophils (%) (Auto) 85.6H, Lymphocytes ( %) (Auto) 7.4L, Monocytes (%) (Auto) 6.8, Eosinophils (%) (Auto) 0.0, Basophils (%) (Auto) 0.2 02/17/18 18:35: Digoxin Level 0.5 Height (Feet): 6 Height (Inches): 3.00 Weight (Pounds): 197 Viviana Quinn MD Feb 17, 2018 20:31
[2018-02-17] MEDS ORDERED: Surgicel 4in x 8in TOPIC ONE (20:45)
[2018-02-17 20:49] LABS: HEMATOCRIT 25.7 % (42.0-52.0); HEMOGLOBIN 8.7 G/DL (14.2-18.0); MEAN CORPUSCULAR VOLUME 99 FL (80-99); PLATELET COUNT 86 K/UL (150-450); RED BLOOD COUNT 2.59 M/UL (4.70-6.10); RED CELL DISTRIBUTION WIDTH 13.4 % (11.6-14.8); WHITE BLOOD COUNT 14.7 K/UL (4.8-10.8)
[2018-02-17 20:57] LABS: BASOPHILS % (AUTO) 0.3 % (0.0-2.0); LYMPHOCYTES % (AUTO) 7.1 % (20.0-45.0); MONOCYTES % (AUTO) 5.6 % (1.0-10.0); NEUTROPHILS % (AUTO) 87.1 % (45.0-75.0)
[2018-02-17] MEDS ORDERED: Lidocaine 1% 10mg/ml/Epi 0.005mg/ml 30ml vial INJ SCH (21:00)
[2018-02-17] MEDS: Pantoprazole Inj IVP SCH (21:00)
[2018-02-17 21:05] LABS: ANION GAP 9 mmol/L (5-15); BLOOD UREA NITROGEN 29 mg/dL (7-18); CALCIUM 7.6 MG/DL (8.5-10.1); CARBON DIOXIDE 23 MMOL/L (21-32); CHLORIDE 110 MMOL/L (98-107); CREATININE 1.2 MG/DL (0.55-1.30); POTASSIUM 4.8 MMOL/L (3.5-5.1); SODIUM 142 MMOL/L (136-145)
[2018-02-17 21:08] LABS: INR 1.4 (0.9-1.1)
[2018-02-17 21:15] LABS: ALANINE AMINOTRANSFERASE < 6 U/L (12-78); ALBUMIN 2.3 G/DL (3.4-5.0); ALBUMIN/GLOBULIN RATIO 0.8 (1.0-2.7); ALKALINE PHOSPHATASE 73 U/L (46-116); ASPARTATE AMINO TRANSFERASE 13 U/L (15-37); BILIRUBIN,TOTAL 1.4 MG/DL (0.2-1.0)
[2018-02-17 21:23] LABS: BILIRUBIN,DIRECT 0.3 MG/DL (0.0-0.3)
--- NOTE | 2018-02-17 22:59 | Pre-Procedure Note/Attestation ---
Pre-Procedure Note/Attestation Complete Prior to Procedure Planned Procedure: not applicable Procedure Narrative: Examination Under Anesthesia / Rigid sigmoidoscopy / Hemostasis of Lower GI bleeding Indications for Procedure Pre-Operative Diagnosis: Lower GI bleeding Attestation I attest that I discussed the nature of the procedure; its benefits; risks and complications; and alternatives (and the risks and benefits of such alternatives ), prior to the procedure, with the patient (or the patient's legal pharmaceutical sales representative). I attest that, if there was a reasonable possibility of needing a blood transfusion, the patient (or the patient's legal pharmaceutical sales representative) was given the [facility] standardized written summary, pursuant to the Graham Leanna Blood Safety Act ([place] Health and Safety Code # 1645, as amended). I attest that I re-evaluated the patient just prior to the surgery and that there has been no change in the patient's H&P, except as documented below: Jordan Alba Feb 17, 2018 22:59
--- NOTE | 2018-02-17 22:59 | General Progress Note ---
Progress Note Progress Note Surgery: patient seen and examined. Rectal hemostasis gauze removed. old thick blood with almost clot evacuated approximately 100cc. anoscopy performed and no active bleeding noted just minimal oozing. surgicel packing placed with gauze in rectal vault over area of prior surgical site bleeding. labs reviewed. HR 70's. BP improved. patient states he is feeling better -NPO -IV fluids -PRBC -Consent for Examination Under Anesthesia / Rigid sigmoidoscopy / Hemostasis -OR in AM thank you Jordan Alba Feb 17, 2018 22:59
[2018-02-18] VITALS (23 sets, daily range): BP systolic 112–149; BP diastolic 35–97
--- NOTE | 2018-02-18 02:45 | History and Physical Report ---
DATE OF ADMISSION: 02/17/2018 REASON FOR ADMISSION: GI bleed. HISTORY OF PRESENT ILLNESS: This is a 72-year-old male who recently underwent a procedure by rectal surgeon. The patient has had persistent GI bleeding and the patient is on Pradaxa. The patient was also noted to be bradycardic. The patient was given IV hydration and was given FFP as well as transfusion in the emergency room. The patient was noted to be hypotensive and was not considered to be transferable. The patient does have history of atrial fibrillation and does have a defibrillator pacemaker. The patient now admitted. The patient was seen much earlier. However, discussion with GI and Cardiology has been undertaken subsequently and the patient noted to have persistent bleeding and General Surgery has been contacted. Hematology as well has been contacted for further platelet transfusion, vitamin K, and antidote for Pradaxa. PAST MEDICAL HISTORY: As above, notable for atrial fibrillation, AICD, polyps or has possible adenocarcinoma status post resection. MEDICATIONS: Reviewed. ALLERGIES: Reviewed. PHYSICAL EXAMINATION: GENERAL: An ill-appearing male. VITAL SIGNS: In the emergency room, blood pressure 91/54, pulse 66, respirations 16, and temperature is 97.4. HEENT: Overall negative. LUNGS: Moderate air entry. CARDIAC: Slightly bradycardic when seen. ABDOMEN: Soft, nondistended. EXTREMITIES: No edema. RECTAL: Per the ER physician, heme-positive stools. LABORATORY DATA: On admission, white count 8.5, hemoglobin 10, platelets 97,000. Chemistries noted, BUN 24, creatinine 1.3, albumin 2.8. INR is 1.5. Abdominal x-ray, gaseous distention in small bowel and colon. IMPRESSION: GI bleed, coagulopathy, atrial fibrillation, bradycardia, and hypotension. RECOMMENDATION: GI, General Surgery, Hematology, Cardiology all contacted and aware. Monitor hemodynamics. Pressors as needed. Transfuse FFP, PRBC, platelets, vitamin K, and antidote to Pradaxa. Antidote to digoxin also ordered. Hydration. General Surgery evaluation and recommendation. Monitor clinically and we will give atropine p.r.n. if needed for significant bradycardia. The patient is critical and not transferable at this time. Gary Ishaaya, M.D. DR: Laura JOB#: [id number] CC:
[2018-02-18 05:30] LABS: HEMATOCRIT 29.3 % (42.0-52.0); HEMOGLOBIN 10.2 G/DL (14.2-18.0); MEAN CORPUSCULAR VOLUME 94 FL (80-99); PLATELET COUNT 88 K/UL (150-450); RED BLOOD COUNT 3.12 M/UL (4.70-6.10); RED CELL DISTRIBUTION WIDTH 13.9 % (11.6-14.8); WHITE BLOOD COUNT 19.1 K/UL (4.8-10.8)
[2018-02-18 05:45] LABS: ALANINE AMINOTRANSFERASE 15 U/L (12-78); ALBUMIN 2.6 G/DL (3.4-5.0); ALBUMIN/GLOBULIN RATIO 0.8 (1.0-2.7); ALKALINE PHOSPHATASE 78 U/L (46-116); ANION GAP 9 mmol/L (5-15); ASPARTATE AMINO TRANSFERASE 24 U/L (15-37); BILIRUBIN,TOTAL 1.2 MG/DL (0.2-1.0); BLOOD UREA NITROGEN 33 mg/dL (7-18); CALCIUM 7.8 MG/DL (8.5-10.1); CARBON DIOXIDE 23 MMOL/L (21-32); CHLORIDE 111 MMOL/L (98-107); CREATININE 1.1 MG/DL (0.55-1.30); POTASSIUM 4.8 MMOL/L (3.5-5.1); SODIUM 143 MMOL/L (136-145)
[2018-02-18 05:47] LABS: BILIRUBIN,DIRECT 0.3 MG/DL (0.0-0.3); INR 1.4 (0.9-1.1)
--- NOTE | 2018-02-18 07:42 | Consultation ---
Consult Note Consult Note Hematology Consult DOS: 02/18/18 REQ : Mio Dahl RFC: Anemia of Gi bleed, pradaxa reversal HPI 72 y old male brought in by EMS for lower GI bleeding. He had colon resection 02/06 and a polyp/adenocarcinoma resection at [place]. No bleeding since then. He started bleeding this 02/17/18 and according to paramedics passed about 100 to 150 mils of blood. He was also found him hypotensive and near syncopal. They gave him a fluid bolus in the field. He had improved vital signs laying down and after the fluid bolus. No abdominal pain.He has never needed blood in the past. The patient is on Pradaxa for atrial fibrillation. He has an implanted defibrillator and pacemaker. He denies any chest pain, shortness of breath or palpitations. Denies vomiting. He was dizzy when they tried is sent him up. No dysuria, headache, rashes, joint pain, back pain. Last night, Dr. Alba came in and performed a anoscope surgical eval, large amount of blood 800cc evacuated with great force, apparently took 4 personnel to clean out patients blood on the bed which was completely soaked. Ordered FFP , vit K and platelets as well as pradaxabind which was very difficult to get given large cost of medication, apparently $6k/dose, at this time still recommend this medication given ongoing bleeding. Allergies: No Known Allergies (Unverified , 10/15/17) Past Medical History: see triage record Social History: Denies: smoking, alcohol use, drug use Social History Narrative Born [place]. Worked on cars Reviewed Nursing Documentation: PMH: Agreed; PSxH: Agreed Past Medical History: No History, Except For Hx Cardiac Problems: Yes - AFIB Hx Hypertension: Yes Hx Pacemaker: Yes ER ROS - General Review of Systems All Other Systems: negative except mentioned in HPI ER Physical Exam - General Physical Exam Last 24 Hour Vital Signs Date Time Temp Pulse Resp B/P (MAP) Pulse Ox O2 Delivery O2 Flow Rate FiO2 02/18/18 07:00 56 23 120/50 (73) 100 02/18/18 06:00 48 22 117/51 (73) 100 02/18/18 05:00 58 20 112/52 (72) 100 02/18/18 04:00 3.0 02/18/18 04:00 57 02/18/18 04:00 Nasal Cannula 4.0 02/18/18 04:00 98.6 69 24 126/49 (74) 100 98.6 02/18/18 03:00 59 20 115/53 (73) 100 02/18/18 02:00 56 17 120/43 (68) 100 02/18/18 01:00 58 19 116/59 (78) 100 02/18/18 00:00 3.0 02/18/18 00:00 58 02/18/18 00:00 98.4 65 22 118/46 (70) 100 98.4 02/18/18 00:00 Nasal Cannula 4.0 02/17/18 23:00 66 22 80/58 (65) 100 02/17/18 22:00 74 24 119/93 (102) 100 02/17/18 21:00 71 25 98/49 (65) 100 02/17/18 20:12 3.0 02/17/18 20:00 Nasal Cannula 4.0 02/17/18 20:00 3.0 02/17/18 20:00 97.9 73 28 94/48 (63) 100 97.9 02/17/18 20:00 65 02/17/18 19:00 80 25 100/39 (59) 100 02/17/18 18:00 80 25 84/49 (61) 100 02/17/18 17:00 93 20 86/60 (69) 100 02/17/18 16:11 Nasal Cannula 3.0 02/17/18 16:00 98.1 45 21 103/49 (67) 100 98.1 02/17/18 15:47 98.2 57 23 86/55 100 Room Air 98.2 02/17/18 15:45 98.2 57 23 86/55 100 Room Air 98.2 02/17/18 14:50 98.0 68 28 99/76 100 Room Air 98.0 02/17/18 14:25 98.4 59 28 79/35 100 Room Air 98.4 02/17/18 14:10 98.0 61 24 85/52 100 Room Air 98.0 02/17/18 13:05 97.7 104 26 117/55 100 Room Air 97.7 02/17/18 13:05 97.7 101 29 97.7 02/17/18 12:50 98.2 72 20 112/70 100 Room Air 98.2 02/17/18 11:50 97.4 60 20 102/52 100 Room Air 97.4 02/17/18 10:49 97.0 87 18 103/63 100 Room Air 97.0 02/17/18 09:02 97.6 88 21 117/60 100 Room Air 97.6 02/17/18 07:42 97.4 66 16 91/54 97 Room Air 97.3 Sp02 EP Interpretation: reviewed, normal General Appearance: well appearing, GCS 15 Head: normocephalic Eyes: bilateral eye PERRL, bilateral eye conjunctivae pale ENT: moist mucus membranes Neck: supple Respiratory: lungs clear, other - pacer L Cardiovascular #1: regular rate, rhythm, no mgr Gastrointestinal: normal inspection, normal bowel sounds, non tender, no mass, nd Rectal: heme positive stool - blood Musculoskeletal: back normal, gait/station normal, normal range of motion Neurologic: alert, oriented x3 Psychiatric: mood/affect normal Skin: warm/dry, pallor Laboratory Tests Test 02/17/18 08:00 02/17/18 09:25 White Blood Count 8.5 K/UL (4.8-10.8) 10.4 K/UL (4.8-10.8) Red Blood Count 2.97 M/UL (4.70-6.10) L 2.80 M/UL (4.70-6.10) L Hemoglobin 10.2 G/DL (14.2-18.0) L 9.4 G/DL (14.2-18.0) L Hematocrit 30.2 % (42.0-52.0) L 28.2 % (42.0-52.0) L Mean Corpuscular Volume 102 FL (80-99) H 101 FL (80-99) H Mean Corpuscular Hemoglobin 34.3 PG (27.0-31.0) H 33.5 PG (27.0-31.0) H Mean Corpuscular Hemoglobin Concent 33.8 G/DL (32.0-36.0) 33.2 G/DL (32.0-36.0) Red Cell Distribution Width 10.4 % (11.6-14.8) L 10.3 % (11.6-14.8) L Platelet Count 97 K/UL (150-450) L 99 K/UL (150-450) L Mean Platelet Volume 9.0 FL (6.5-10.1) 9.8 FL (6.5-10.1) Neutrophils (%) (Auto) % (45.0-75.0) % (45.0-75.0) Lymphocytes (%) (Auto) % (20.0-45.0) % (20.0-45.0) Monocytes (%) (Auto) % (1.0-10.0) % (1.0-10.0) Eosinophils (%) (Auto) % (0.0-3.0) % (0.0-3.0) Basophils (%) (Auto) % (0.0-2.0) % (0.0-2.0) Differential Total Cells Counted 100 100 Neutrophils % (Manual) 83 % (45-75) H 82 % (45-75) H Lymphocytes % (Manual) 13 % (20-45) L 8 % (20-45) L Monocytes % (Manual) 4 % (1-10) 10 % (1-10) Eosinophils % (Manual) 0 % (0-3) 0 % (0-3) Basophils % (Manual) 0 % (0-2) 0 % (0-2) Band Neutrophils 0 % (0-8) 0 % (0-8) Platelet Estimate Decreased L Decreased L Platelet Morphology Normal Normal Macrocytosis 1+ 1+ Prothrombin Time 15.4 SEC (9.30-11.50) H Prothrombin Time INR 1.5 (0.9-1.1) H PTT 31 SEC (23-33) Sodium Level 138 MMOL/L (136-145) Potassium Level 4.5 MMOL/L (3.5-5.1) Chloride Level 106 MMOL/L (98-107) Carbon Dioxide Level 23 MMOL/L (21-32) Anion Gap 9 mmol/L (5-15) Blood Urea Nitrogen 24 mg/dL (7-18) H Creatinine 1.3 MG/DL (0.55-1.30) Estimate Glomerular Filtration Rate mL/min (>60) Glucose Level 165 MG/DL (74-106) H Lactic Acid Level 3.40 mmol/L (0.4-2.0) H 1.50 mmol/L (0.66-2.22) Calcium Level 8.5 MG/DL (8.5-10.1) Total Bilirubin 0.9 MG/DL (0.2-1.0) Aspartate Amino Transferase (AST) 19 U/L (15-37) Alanine Aminotransferase (ALT) 15 U/L (12-78) Alkaline Phosphatase 95 U/L (46-116) Total Creatine Kinase 62 U/L (26-308) Troponin I 0.016 ng/mL (0.000-0.056) Total Protein 6.5 G/DL (6.4-8.2) Albumin 2.8 G/DL (3.4-5.0) L Globulin 3.7 g/dL Albumin/Globulin Ratio 0.8 (1.0-2.7) L Lipase 57 U/L (73-393) L Assessment and Recs: # Anticoagulant (pradaxa) related bleeding -- he has been on pradaxa prior to admission, is a poor historian, difficult to obtain exact history of when he took the last dose, but given ongoing profuse bleeding, very likely was taking pradaxa right up to hospitalization --> FFP, prbc, platelets have been transfused --> has been given vitamin K 10mg IV x 1 --> have ordered pradaxabind to reverse bleed however is very difficult to obtain given we do not have it in the pharmacy --> monitor cbc and obtain thrombocytopenia workup --> hemostasis, appreciate gi and surgical recs --> IN ICU AT THIS TIME # Lower gastrointestinal hemorrhage due to pradaxa --> anemia w.u has been reviewed --> should improve longer patient is off pradaxa # Thrombocytopenia with a low platelets --> have ordered for hepatitis panel, hiv, us abd --> INR reversal # Alteration in anticoagulation --> hold off pradaxa at this time, do not administer it # Coagulopathy with a elevated INR is 1.5. CMP with elevated BUN/creatinine. Initial lactic acid is 3.4. --> vit K prn # Chronic atrial fibrillation --> restart anticoagulation in future once bleeding resolves # Hemorrhagic shock --> IVF appreciated # post-colon resection on anticoagulation. --> surgical recs appreciated Greatly appreciate consultation! Castillo Harris MD Feb 18, 2018 07:42
[2018-02-18] MEDS ORDERED: Lidocaine HCl 2% Jelly 5ml Tube TOPIC ONE (07:45)
[2018-02-18] MEDS ORDERED: Lidocaine 1% 10mg/ml/Epi 0.005mg/ml 30ml vial INJ ONE (07:46)
--- NOTE | 2018-02-18 07:46 | Anethesia Preoperative Eval ---
Anesthesia Pre-op PMH/ROS General Date of Evaluation: Feb 18, 2018 Time of Evaluation: 09:10 Anesthesiologist: Donavon ASA Score: ASA 3 Mallampati Score Class I : Soft palate, uvula, fauces, pillars visible Class II: Soft palate, uvula, fauces visible Class III: Soft palate, base of uvula visible Class IV: Only hard plate visible Mallampati Classification: Class II Surgeon: Parth Diagnosis: GI bleed Surgical Procedure: Sigmoidoscopy, hemostatis Allergies: Coded Allergies: No Known Allergies (Unverified , 10/15/17) Medications: see eMAR Patient NPO?: Yes NPO Date: Feb 16, 2018 NPO Time: 1200 Past Medical History Cardiovascular: Reports: arrhythmia - A-fib now with debrillator/PM; Denies: HTN, CAD, GA, valve dz, other Pulmonary: Denies: asthma, COPD, GISELLA, other Gastrointestinal/Genitourinary: Denies: GERD, CRI, ESRD, other Neurologic/Psychiatric: Denies: dementia, CVA, depression/anxiety, TIA, other Endocrine: Denies: DM, hypothyroidism, steroids, other HEENT: Denies: cataract (L), cataract (R), glaucoma, OUZINKIE (L), OUZINKIE (R), other Hematology/Immune: Reports: anemia, bleeding disorder; Denies: DVT, other Musculoskeletal/Integumentary: Denies: OA, RA, DJD, DDD, edema, other PMH Narrative: A-fib now with defibrillatory/PM PSxH Narrative: Excision of coon polyp, PM/defibrillator Anesthesia Pre-op Phys. Exam Physician Exam Last Vital Signs Date Time Temp Pulse Resp B/P (MAP) Pulse Ox O2 Delivery O2 Flow Rate FiO2 02/18/18 07:00 56 23 120/50 (73) 100 02/18/18 04:00 3.0 02/18/18 04:00 Nasal Cannula 02/18/18 04:00 98.6 98.6 Neurologic: CN 2-12 intact Cardiovascular: no M/R/G Gastrointestinal: S/NT/ND Airway Exam Mallampati Score: Class II MO: full ROM: full Dentures: upper Anesthesia Pre-op A/P Labs Hematology Test 02/17/18 08:00 02/17/18 09:25 02/17/18 17:40 02/17/18 20:30 White Blood Count 8.5 K/UL (4.8-10.8) 10.4 K/UL (4.8-10.8) 13.1 K/UL (4.8-10.8) H 14.7 K/UL (4.8-10.8) H Red Blood Count 2.97 M/UL (4.70-6.10) L 2.80 M/UL (4.70-6.10) L 2.35 M/UL (4.70-6.10) L 2.59 M/UL (4.70-6.10) L Hemoglobin 10.2 G/DL (14.2-18.0) L 9.4 G/DL (14.2-18.0) L 8.2 G/DL (14.2-18.0) L 8.7 G/DL (14.2-18.0) L Hematocrit 30.2 % (42.0-52.0) L 28.2 % (42.0-52.0) L 23.4 % (42.0-52.0) L 25.7 % (42.0-52.0) L Mean Corpuscular Volume 102 FL (80-99) H 101 FL (80-99) H 100 FL (80-99) H 99 FL (80-99) Mean Corpuscular Hemoglobin 34.3 PG (27.0-31.0) H 33.5 PG (27.0-31.0) H 34.7 PG (27.0-31.0) H 33.7 PG (27.0-31.0) H Mean Corpuscular Hemoglobin Concent 33.8 G/DL (32.0-36.0) 33.2 G/DL (32.0-36.0) 34.8 G/DL (32.0-36.0) 34.0 G/DL (32.0-36.0) Red Cell Distribution Width 10.4 % (11.6-14.8) L 10.3 % (11.6-14.8) L 13.2 % (11.6-14.8) 13.4 % (11.6-14.8) Platelet Count 97 K/UL (150-450) L 99 K/UL (150-450) L 79 K/UL (150-450) L 86 K/UL (150-450) L Mean Platelet Volume 9.0 FL (6.5-10.1) 9.8 FL (6.5-10.1) 7.8 FL (6.5-10.1) 7.4 FL (6.5-10.1) Neutrophils (%) (Auto) % (45.0-75.0) % (45.0-75.0) 85.6 % (45.0-75.0) H 87.1 % (45.0-75.0) H Lymphocytes (%) (Auto) % (20.0-45.0) % (20.0-45.0) 7.4 % (20.0-45.0) L 7.1 % (20.0-45.0) L Monocytes (%) (Auto) % (1.0-10.0) % (1.0-10.0) 6.8 % (1.0-10.0) 5.6 % (1.0-10.0) Eosinophils (%) (Auto) % (0.0-3.0) % (0.0-3.0) 0.0 % (0.0-3.0) 0.0 % (0.0-3.0) Basophils (%) (Auto) % (0.0-2.0) % (0.0-2.0) 0.2 % (0.0-2.0) 0.3 % (0.0-2.0) Differential Total Cells Counted 100 100 Neutrophils % (Manual) 83 % (45-75) H 82 % (45-75) H Lymphocytes % (Manual) 13 % (20-45) L 8 % (20-45) L Monocytes % (Manual) 4 % (1-10) 10 % (1-10) Eosinophils % (Manual) 0 % (0-3) 0 % (0-3) Basophils % (Manual) 0 % (0-2) 0 % (0-2) Band Neutrophils 0 % (0-8) 0 % (0-8) Platelet Estimate Decreased L Decreased L Platelet Morphology Normal Normal Macrocytosis 1+ 1+ Test 02/18/18 04:00 White Blood Count 19.1 K/UL (4.8-10.8) H Red Blood Count 3.12 M/UL (4.70-6.10) L Hemoglobin 10.2 G/DL (14.2-18.0) L Hematocrit 29.3 % (42.0-52.0) L Mean Corpuscular Volume 94 FL (80-99) Mean Corpuscular Hemoglobin 32.7 PG (27.0-31.0) H Mean Corpuscular Hemoglobin Concent 34.8 G/DL (32.0-36.0) Red Cell Distribution Width 13.9 % (11.6-14.8) Platelet Count 88 K/UL (150-450) L Mean Platelet Volume 8.4 FL (6.5-10.1) Neutrophils (%) (Auto) % (45.0-75.0) Lymphocytes (%) (Auto) % (20.0-45.0) Monocytes (%) (Auto) % (1.0-10.0) Eosinophils (%) (Auto) % (0.0-3.0) Basophils (%) (Auto) % (0.0-2.0) Neutrophils % (Manual) Pending Lymphocytes % (Manual) Pending Platelet Estimate Pending Platelet Morphology Pending Coagulation Test 02/17/18 08:00 02/17/18 20:30 02/18/18 04:00 Prothrombin Time 15.4 SEC (9.30-11.50) H 14.5 SEC (9.30-11.50) H 14.5 SEC (9.30-11.50) H Prothromb Time International Ratio 1.5 (0.9-1.1) H 1.4 (0.9-1.1) H 1.4 (0.9-1.1) H Activated Partial Thromboplast Time 31 SEC (23-33) 33 SEC (23-33) 22 SEC (23-33) L Fibrinogen 187 mg/dL (200-400) L Chemistry Test 02/17/18 08:00 02/17/18 09:25 02/17/18 20:30 02/18/18 04:00 Sodium Level 138 MMOL/L (136-145) 142 MMOL/L (136-145) 143 MMOL/L (136-145) Potassium Level 4.5 MMOL/L (3.5-5.1) 4.8 MMOL/L (3.5-5.1) 4.8 MMOL/L (3.5-5.1) Chloride Level 106 MMOL/L (98-107) 110 MMOL/L (98-107) H 111 MMOL/L (98-107) H Carbon Dioxide Level 23 MMOL/L (21-32) 23 MMOL/L (21-32) 23 MMOL/L (21-32) Anion Gap 9 mmol/L (5-15) 9 mmol/L (5-15) 9 mmol/L (5-15) Blood Urea Nitrogen 24 mg/dL (7-18) H 29 mg/dL (7-18) H 33 mg/dL (7-18) H Creatinine 1.3 MG/DL (0.55-1.30) 1.2 MG/DL (0.55-1.30) 1.1 MG/DL (0.55-1.30) Estimat Glomerular Filtration Rate mL/min (>60) mL/min (>60) mL/min (>60) Glucose Level 165 MG/DL (74-106) H 144 MG/DL (74-106) H 106 MG/DL (74-106) Lactic Acid Level 3.40 mmol/L (0.4-2.0) H 1.50 mmol/L (0.66-2.22) Calcium Level 8.5 MG/DL (8.5-10.1) 7.6 MG/DL (8.5-10.1) L 7.8 MG/DL (8.5-10.1) L Total Bilirubin 0.9 MG/DL (0.2-1.0) 1.4 MG/DL (0.2-1.0) H 1.2 MG/DL (0.2-1.0) H Aspartate Amino Transf (AST/SGOT) 19 U/L (15-37) 13 U/L (15-37) L 24 U/L (15-37) Alanine Aminotransferase (ALT/SGPT) 15 U/L (12-78) < 6 U/L (12-78) L 15 U/L (12-78) Alkaline Phosphatase 95 U/L (46-116) 73 U/L (46-116) 78 U/L (46-116) Total Creatine Kinase 62 U/L (26-308) Troponin I 0.016 ng/mL (0.000-0.056) Total Protein 6.5 G/DL (6.4-8.2) 5.3 G/DL (6.4-8.2) L 5.8 G/DL (6.4-8.2) L Albumin 2.8 G/DL (3.4-5.0) L 2.3 G/DL (3.4-5.0) L 2.6 G/DL (3.4-5.0) L Globulin 3.7 g/dL 3.0 g/dL 3.2 g/dL Albumin/Globulin Ratio 0.8 (1.0-2.7) L 0.8 (1.0-2.7) L 0.8 (1.0-2.7) L Lipase 57 U/L (73-393) L Direct Bilirubin 0.3 MG/DL (0.0-0.3) 0.3 MG/DL (0.0-0.3) Risk Assessment & Plan Assessment: GI bleed after colon polypectomy Plan: GA Status Change Before Surgery: No Pre-Antibiotics Drug: Ancef Given Within 1 Hr of Incision: Yes Time Given: 09:30 Graham Raphael MD Feb 18, 2018 07:46
--- NOTE | 2018-02-18 08:39 | General Progress Note ---
Assessment/Plan Assessment/Plan IMPRESSION: GI bleed, coagulopathy, atrial fibrillation, bradycardia, and hypotension. PLAN surgery today holding anticoagulation IV hydration gi, gs, heme appreciated vitals improved transfer once stable and cleared Subjective Allergies: Coded Allergies: No Known Allergies (Unverified , 10/15/17) Subjective s/p multiple transfusions s/p anoscopy for surgery today Objective Last 24 Hour Vital Signs Date Time Temp Pulse Resp B/P (MAP) Pulse Ox O2 Delivery O2 Flow Rate FiO2 02/18/18 08:00 67 02/18/18 08:00 98.6 57 22 119/56 (77) 100 98.6 02/18/18 08:00 3.0 02/18/18 08:00 Nasal Cannula 4.0 02/18/18 07:00 56 23 120/50 (73) 100 02/18/18 06:00 48 22 117/51 (73) 100 02/18/18 05:00 58 20 112/52 (72) 100 02/18/18 04:00 3.0 02/18/18 04:00 57 02/18/18 04:00 Nasal Cannula 4.0 02/18/18 04:00 98.6 69 24 126/49 (74) 100 98.6 02/18/18 03:00 59 20 115/53 (73) 100 02/18/18 02:00 56 17 120/43 (68) 100 02/18/18 01:00 58 19 116/59 (78) 100 02/18/18 00:00 3.0 02/18/18 00:00 58 02/18/18 00:00 98.4 65 22 118/46 (70) 100 98.4 02/18/18 00:00 Nasal Cannula 4.0 02/17/18 23:00 66 22 80/58 (65) 100 02/17/18 22:00 74 24 119/93 (102) 100 02/17/18 21:00 71 25 98/49 (65) 100 02/17/18 20:12 3.0 02/17/18 20:00 Nasal Cannula 4.0 02/17/18 20:00 3.0 02/17/18 20:00 97.9 73 28 94/48 (63) 100 97.9 02/17/18 20:00 65 02/17/18 19:00 80 25 100/39 (59) 100 02/17/18 18:00 80 25 84/49 (61) 100 02/17/18 17:00 93 20 86/60 (69) 100 02/17/18 16:11 Nasal Cannula 3.0 02/17/18 16:00 98.1 45 21 103/49 (67) 100 98.1 02/17/18 15:47 98.2 57 23 86/55 100 Room Air 98.2 02/17/18 15:45 98.2 57 23 86/55 100 Room Air 98.2 02/17/18 14:50 98.0 68 28 99/76 100 Room Air 98.0 02/17/18 14:25 98.4 59 28 79/35 100 Room Air 98.4 02/17/18 14:10 98.0 61 24 85/52 100 Room Air 98.0 02/17/18 13:05 97.7 104 26 117/55 100 Room Air 97.7 02/17/18 13:05 97.7 101 29 97.7 02/17/18 12:50 98.2 72 20 112/70 100 Room Air 98.2 02/17/18 11:50 97.4 60 20 102/52 100 Room Air 97.4 02/17/18 10:49 97.0 87 18 103/63 100 Room Air 97.0 02/17/18 09:02 97.6 88 21 117/60 100 Room Air 97.6 Intake and Output 02/17/18 02/18/18 19:00 07:00 Intake Total 1900 ml 1900 ml Output Total 0 ml 4800 ml Balance 1900 ml -2900 ml Intake Oral 0 ml 0 ml IV Total 1900 ml 1100 ml Blood Product 800 ml Output Urine Total 0 ml 1000 ml Estimated Blood Loss 3800 ml # Bowel Movements 2 Laboratory Tests 02/17/18 09:25: White Blood Count 10.4, Red Blood Count 2.80L, Hemoglobin 9.4L, Hematocrit 28.2L , Mean Corpuscular Volume 101H, Mean Corpuscular Hemoglobin 33.5H, Mean Corpuscular Hemoglobin Concent 33.2, Red Cell Distribution Width 10.3L, Platelet Count 99L, Mean Platelet Volume 9.8, Neutrophils (%) (Auto) , Lymphocytes (%) (Auto) , Monocytes (%) (Auto) , Eosinophils (%) (Auto) , Basophils (%) (Auto) , Differential Total Cells Counted 100, Neutrophils % ( Manual) 82H, Lymphocytes % (Manual) 8L, Monocytes % (Manual) 10, Eosinophils % ( Manual) 0, Basophils % (Manual) 0, Band Neutrophils 0, Platelet Estimate DecreasedL, Platelet Morphology Normal, Macrocytosis 1+, Lactic Acid Level 1.50 02/17/18 13:20: Urine Color Yellow, Urine Appearance Clear, Urine pH 5, Urine Specific [place] 1.025, Urine Protein 1+H, Urine Glucose (UA) Negative, Urine Ketones Negative, Urine Blood Negative, Urine Nitrite Negative, Urine Bilirubin Negative, Urine Urobilinogen 1H, Urine Leukocyte Esterase 1+H, Urine RBC 0, Urine WBC 0-2, Urine Squamous Epithelial Cells Occasional, Urine Bacteria Occasional, Urine Mucus Occasional 02/17/18 17:40: White Blood Count 13.1H, Red Blood Count 2.35L, Hemoglobin 8.2L, Hematocrit 23.4L, Mean Corpuscular Volume 100H, Mean Corpuscular Hemoglobin 34.7H, Mean Corpuscular Hemoglobin Concent 34.8, Red Cell Distribution Width 13.2, Platelet Count 79L, Mean Platelet Volume 7.8, Neutrophils (%) (Auto) 85.6H, Lymphocytes ( %) (Auto) 7.4L, Monocytes (%) (Auto) 6.8, Eosinophils (%) (Auto) 0.0, Basophils (%) (Auto) 0.2 02/17/18 18:35: Digoxin Level 0.5 02/17/18 20:30: White Blood Count 14.7H, Red Blood Count 2.59L, Hemoglobin 8.7L, Hematocrit 25.7L, Mean Corpuscular Volume 99, Mean Corpuscular Hemoglobin 33.7H, Mean Corpuscular Hemoglobin Concent 34.0, Red Cell Distribution Width 13.4, Platelet Count 86L, Mean Platelet Volume 7.4, Neutrophils (%) (Auto) 87.1H, Lymphocytes ( %) (Auto) 7.1L, Monocytes (%) (Auto) 5.6, Eosinophils (%) (Auto) 0.0, Basophils (%) (Auto) 0.3, Prothrombin Time 14.5H, Prothromb Time International Ratio 1.4H , Activated Partial Thromboplast Time 33, Fibrinogen 187L, Sodium Level 142, Potassium Level 4.8, Chloride Level 110H, Carbon Dioxide Level 23, Anion Gap 9, Blood Urea Nitrogen 29H, Creatinine 1.2, Estimat Glomerular Filtration Rate , Glucose Level 144H, Calcium Level 7.6L, Total Bilirubin 1.4H, Direct Bilirubin 0.3, Aspartate Amino Transf (AST/SGOT) 13L, Alanine Aminotransferase (ALT/SGPT) < 6L, Alkaline Phosphatase 73, Total Protein 5.3L, Albumin 2.3L, Globulin 3.0, Albumin/Globulin Ratio 0.8L 02/18/18 04:00: White Blood Count 19.1H, Red Blood Count 3.12L, Hemoglobin 10.2L, Hematocrit 29.3L, Mean Corpuscular Volume 94, Mean Corpuscular Hemoglobin 32.7H, Mean Corpuscular Hemoglobin Concent 34.8, Red Cell Distribution Width 13.9, Platelet Count 88L, Mean Platelet Volume 8.4, Neutrophils (%) (Auto) , Lymphocytes (%) ( Auto) , Monocytes (%) (Auto) , Eosinophils (%) (Auto) , Basophils (%) (Auto) , Prothrombin Time 14.5H, Prothromb Time International Ratio 1.4H, Activated Partial Thromboplast Time 22L, Sodium Level 143, Potassium Level 4.8, Chloride Level 111H, Carbon Dioxide Level 23, Anion Gap 9, Blood Urea Nitrogen 33H, Creatinine 1.1, Estimat Glomerular Filtration Rate , Glucose Level 106, Calcium Level 7.8L, Total Bilirubin 1.2H, Direct Bilirubin 0.3, Aspartate Amino Transf ( AST/SGOT) 24, Alanine Aminotransferase (ALT/SGPT) 15, Alkaline Phosphatase 78, Total Protein 5.8L, Albumin 2.6L, Globulin 3.2, Albumin/Globulin Ratio 0.8L, Neutrophils % (Manual) [Pending], Lymphocytes % (Manual) [Pending], Platelet Estimate [Pending], Platelet Morphology [Pending], HIV (1&2) Antibody Rapid [ Pending] Height (Feet): 6 Height (Inches): 3.00 Weight (Pounds): 216 Objective WDWN NAD clear breath sounds bilaterally without rhonchi or wheeze [id number] without MRG NABS nontender no HSM no CCE nonfocal Gary Dahl MD Feb 18, 2018 08:39
[2018-02-18] MEDS ORDERED: ePHEDrine 50mg/ml Inj ONE (09:01)
[2018-02-18] MEDS ORDERED: Propofol 200mg/20ml IV ONE (09:28)
[2018-02-18] MEDS ORDERED: Midazolam 2mg/2ml Inj ONE (09:32)
--- NOTE | 2018-02-18 10:23 | Immediate Post-Op Evaluation ---
Immediate Post-Op Evalulation Immediate Post-Op Evalulation Procedure: Sigmoid colon hemostasis Date of Evaluation: Feb 18, 2018 Time of Evaluation: 11:00 IV Fluids: 600 Estimated Blood Loss: 100 Blood Pressure Systolic: 118 Blood Pressure Diastolic: 80 Pulse Rate: 84 Respiratory Rate: 16 O2 Sat by Pulse Oximetry: 100 Pain Score (1-10): 0 Nausea: No Vomiting: No Complications No complication Patient Status: awake, patent, none Hydration Status: adequate Drug: Ancef Time Given: 09:30 Graham Raphael MD Feb 18, 2018 10:23
--- NOTE | 2018-02-18 10:45 | Brief Operative Note ---
Immediate Post Operative Note Operative Note Pre-op Diagnosis: Lower GI bleeding Procedure: 1. Examination under anesthesia 2. Rigid sigmoidoscopy 3. Hemostasis of bleeding surgical excision site from recent surgery Post-op Diagnosis: same as pre-op plus - bleeding from prior rectal/anal surgical site Surgeon: mykel Anesthesiologist: oz Anesthesia: general, local Specimen: none Complications: none Condition: stable Fluids: see records Estimated Blood Loss: minimal Drains: none Implant(s) used?: No Jordan Alba Feb 18, 2018 10:45
--- NOTE | 2018-02-18 10:57 | Consultation ---
History of Present Illness General Date patient seen: Feb 17, 2018 Chief Complaint: Gastrointestinal Bleed Reason for Consultation: GI bleeding Present Illness HPI 72 year old male presented with severe lower GI bleed. Noted BRBPR this AM at 06:00. Since multiple LARGE bloody BM. Came to ED and was noted to be Tachy at times, Bernard at times, Hypotensive, and with altered mental status. From report/history had Lower GI procedure approximately 10 days ago at [facility] (flex sig w/ excision of rectal? polyp and closure). Did well post op. Resumed Pradaxa and home meds few days after procedure. Had large BM and next morning began to note BRBPR. Admitted to ICU for care and management. Transfused 3 PRBC , 2 FFP, pending platelets, given vit K. Surgery called to evaluate. patient seen, chart reviewed, patient examined. Allergies: Coded Allergies: No Known Allergies (Unverified , 10/15/17) Medication History Unable to Obtain Active Prescriptions or Reported Meds Patient History History Provided By: Patient, Medical Record, PMD Healthcare decision maker Resuscitation status Full Code Advanced Directive on File No Past Medical/Surgical History Past Medical/Surgical History: (1) Atrial fibrillation (2) Alteration in anticoagulation (3) Hemorrhagic shock (4) Lower gastrointestinal hemorrhage (5) Hypotension (6) Bradycardia Review of Systems All Other Systems: negative except mentioned in HPI Physical Exam General Appearance: no apparent distress, alert Lines, tubes and drains: peripheral HEENT: mucous membranes moist Neck: normal inspection Respiratory/Chest: normal breath sounds, no respiratory distress, no accessory muscle use Cardiovascular/Chest: tachycardia Abdomen: normal bowel sounds, non tender, soft, no organomegaly, no mass Genitourinary/Rectal: heme positive stool Extremities: normal inspection Skin Exam: warm/dry Neurologic: alert, responsive Last 24 Hour Vital Signs Date Time Temp Pulse Resp B/P (MAP) Pulse Ox O2 Delivery O2 Flow Rate FiO2 02/18/18 09:00 65 21 118/57 (77) 100 02/18/18 08:00 67 02/18/18 08:00 98.6 57 22 119/56 (77) 100 98.6 02/18/18 08:00 3.0 02/18/18 08:00 Nasal Cannula 4.0 02/18/18 07:00 56 23 120/50 (73) 100 02/18/18 06:00 48 22 117/51 (73) 100 02/18/18 05:00 58 20 112/52 (72) 100 02/18/18 04:00 3.0 02/18/18 04:00 57 02/18/18 04:00 Nasal Cannula 4.0 02/18/18 04:00 98.6 69 24 126/49 (74) 100 98.6 02/18/18 03:00 59 20 115/53 (73) 100 02/18/18 02:00 56 17 120/43 (68) 100 02/18/18 01:00 58 19 116/59 (78) 100 02/18/18 00:00 3.0 02/18/18 00:00 58 02/18/18 00:00 98.4 65 22 118/46 (70) 100 98.4 02/18/18 00:00 Nasal Cannula 4.0 02/17/18 23:00 66 22 80/58 (65) 100 02/17/18 22:00 74 24 119/93 (102) 100 02/17/18 21:00 71 25 98/49 (65) 100 02/17/18 20:12 3.0 02/17/18 20:00 Nasal Cannula 4.0 02/17/18 20:00 3.0 02/17/18 20:00 97.9 73 28 94/48 (63) 100 97.9 02/17/18 20:00 65 02/17/18 19:00 80 25 100/39 (59) 100 02/17/18 18:00 80 25 84/49 (61) 100 02/17/18 17:00 93 20 86/60 (69) 100 02/17/18 16:11 Nasal Cannula 3.0 02/17/18 16:00 98.1 45 21 103/49 (67) 100 98.1 02/17/18 15:47 98.2 57 23 86/55 100 Room Air 98.2 02/17/18 15:45 98.2 57 23 86/55 100 Room Air 98.2 02/17/18 14:50 98.0 68 28 99/76 100 Room Air 98.0 02/17/18 14:25 98.4 59 28 79/35 100 Room Air 98.4 02/17/18 14:10 98.0 61 24 85/52 100 Room Air 98.0 10/21/18 13:05 97.7 104 26 117/55 100 Room Air 97.7 02/17/18 13:05 97.7 101 29 97.7 02/17/18 12:50 98.2 72 20 112/70 100 Room Air 98.2 02/17/18 11:50 97.4 60 20 102/52 100 Room Air 97.4 Intake and Output 02/17/18 02/18/18 19:00 07:00 Intake Total 1900 ml 1900 ml Output Total 0 ml 4800 ml Balance 1900 ml -2900 ml Intake Oral 0 ml 0 ml IV Total 1900 ml 1100 ml Blood Product 800 ml Output Urine Total 0 ml 1000 ml Estimated Blood Loss 3800 ml # Bowel Movements 2 Laboratory Tests Test 02/17/18 13:20 02/17/18 17:40 02/17/18 18:35 02/17/18 20:30 Urine Color Yellow Urine Appearance Clear Urine pH 5 (4.5-8.0) Urine Specific [place] 1.025 (1.005-1.035) Urine Protein 1+ (NEGATIVE) H Urine Glucose (UA) Negative (NEGATIVE) Urine Ketones Negative (NEGATIVE) Urine Blood Negative (NEGATIVE) Urine Nitrite Negative (NEGATIVE) Urine Bilirubin Negative (NEGATIVE) Urine Urobilinogen 1 MG/DL (0.0-1.0) H Urine Leukocyte Esterase 1+ (NEGATIVE) H Urine RBC 0 /HPF (0 - 0) Urine WBC 0-2 /HPF (0 - 0) Urine Squamous Epithelial Cells Occasional /LPF Urine Bacteria Occasional /HPF (NONE) Urine Mucus Occasional /LPF White Blood Count 13.1 K/UL (4.8-10.8) H 14.7 K/UL (4.8-10.8) H Red Blood Count 2.35 M/UL (4.70-6.10) L 2.59 M/UL (4.70-6.10) L Hemoglobin 8.2 G/DL (14.2-18.0) L 8.7 G/DL (14.2-18.0) L Hematocrit 23.4 % (42.0-52.0) L 25.7 % (42.0-52.0) L Mean Corpuscular Volume 100 FL (80-99) H 99 FL (80-99) Mean Corpuscular Hemoglobin 34.7 PG (27.0-31.0) H 33.7 PG (27.0-31.0) H Mean Corpuscular Hemoglobin Concent 34.8 G/DL (32.0-36.0) 34.0 G/DL (32.0-36.0) Red Cell Distribution Width 13.2 % (11.6-14.8) 13.4 % (11.6-14.8) Platelet Count 79 K/UL (150-450) L 86 K/UL (150-450) L Mean Platelet Volume 7.8 FL (6.5-10.1) 7.4 FL (6.5-10.1) Neutrophils (%) (Auto) 85.6 % (45.0-75.0) H 87.1 % (45.0-75.0) H Lymphocytes (%) (Auto) 7.4 % (20.0-45.0) L 7.1 % (20.0-45.0) L Monocytes (%) (Auto) 6.8 % (1.0-10.0) 5.6 % (1.0-10.0) Eosinophils (%) (Auto) 0.0 % (0.0-3.0) 0.0 % (0.0-3.0) Basophils (%) (Auto) 0.2 % (0.0-2.0) 0.3 % (0.0-2.0) Digoxin Level 0.5 NG/ML (0.5-2.0) Prothrombin Time 14.5 SEC (9.30-11.50) H Prothromb Time International Ratio 1.4 (0.9-1.1) H Activated Partial Thromboplast Time 33 SEC (23-33) Fibrinogen 187 mg/dL (200-400) L Sodium Level 142 MMOL/L (136-145) Potassium Level 4.8 MMOL/L (3.5-5.1) Chloride Level 110 MMOL/L (98-107) H Carbon Dioxide Level 23 MMOL/L (21-32) Anion Gap 9 mmol/L (5-15) Blood Urea Nitrogen 29 mg/dL (7-18) H Creatinine 1.2 MG/DL (0.55-1.30) Estimat Glomerular Filtration Rate mL/min (>60) Glucose Level 144 MG/DL (74-106) H Calcium Level 7.6 MG/DL (8.5-10.1) L Total Bilirubin 1.4 MG/DL (0.2-1.0) H Direct Bilirubin 0.3 MG/DL (0.0-0.3) Aspartate Amino Transf (AST/SGOT) 13 U/L (15-37) L Alanine Aminotransferase (ALT/SGPT) < 6 U/L (12-78) L Alkaline Phosphatase 73 U/L (46-116) Total Protein 5.3 G/DL (6.4-8.2) L Albumin 2.3 G/DL (3.4-5.0) L Globulin 3.0 g/dL Albumin/Globulin Ratio 0.8 (1.0-2.7) L Test 02/18/18 04:00 White Blood Count 19.1 K/UL (4.8-10.8) H Red Blood Count 3.12 M/UL (4.70-6.10) L Hemoglobin 10.2 G/DL (14.2-18.0) L Hematocrit 29.3 % (42.0-52.0) L Mean Corpuscular Volume 94 FL (80-99) Mean Corpuscular Hemoglobin 32.7 PG (27.0-31.0) H Mean Corpuscular Hemoglobin Concent 34.8 G/DL (32.0-36.0) Red Cell Distribution Width 13.9 % (11.6-14.8) Platelet Count 88 K/UL (150-450) L Mean Platelet Volume 8.4 FL (6.5-10.1) Neutrophils (%) (Auto) % (45.0-75.0) Lymphocytes (%) (Auto) % (20.0-45.0) Monocytes (%) (Auto) % (1.0-10.0) Eosinophils (%) (Auto) % (0.0-3.0) Basophils (%) (Auto) % (0.0-2.0) Differential Total Cells Counted 100 Neutrophils % (Manual) 85 % (45-75) H Lymphocytes % (Manual) 10 % (20-45) L Monocytes % (Manual) 5 % (1-10) Eosinophils % (Manual) 0 % (0-3) Basophils % (Manual) 0 % (0-2) Band Neutrophils 0 % (0-8) Platelet Estimate Decreased L Platelet Morphology Normal Red Blood Cell Morphology Normal Prothrombin Time 14.5 SEC (9.30-11.50) H Prothromb Time International Ratio 1.4 (0.9-1.1) H Activated Partial Thromboplast Time 22 SEC (23-33) L Sodium Level 143 MMOL/L (136-145) Potassium Level 4.8 MMOL/L (3.5-5.1) Chloride Level 111 MMOL/L (98-107) H Carbon Dioxide Level 23 MMOL/L (21-32) Anion Gap 9 mmol/L (5-15) Blood Urea Nitrogen 33 mg/dL (7-18) H Creatinine 1.1 MG/DL (0.55-1.30) Estimat Glomerular Filtration Rate mL/min (>60) Glucose Level 106 MG/DL (74-106) Calcium Level 7.8 MG/DL (8.5-10.1) L Total Bilirubin 1.2 MG/DL (0.2-1.0) H Direct Bilirubin 0.3 MG/DL (0.0-0.3) Aspartate Amino Transf (AST/SGOT) 24 U/L (15-37) Alanine Aminotransferase (ALT/SGPT) 15 U/L (12-78) Alkaline Phosphatase 78 U/L (46-116) Total Protein 5.8 G/DL (6.4-8.2) L Albumin 2.6 G/DL (3.4-5.0) L Globulin 3.2 g/dL Albumin/Globulin Ratio 0.8 (1.0-2.7) L HIV (1&2) Antibody Rapid Pending Microbiology Date/Time Source Procedure Growth Status 02/17/18 15:30 Rectum VRE Culture Pending Resulted 02/17/18 15:30 Rectum - Preliminary Resulted Height (Feet): 6 Height (Inches): 3.00 Weight (Pounds): 216 Medications Current Medications Medications (Trade) Dose Ordered Sig/Corazon Route PRN Reason Start Time Stop Time Status Last Admin Dose Admin Ondansetron HCl (Zofran) 4 mg Q4H PRN IVP Nausea & Vomiting 02/17/18 16:30 03/19/18 16:29 Pantoprazole (Protonix) 40 mg EVERY 12 HOURS IVP 02/17/18 21:00 03/19/18 20:59 02/17/18 21:00 Sodium Chloride 1,000 ml @ 100 mls/hr Q10H IV 02/17/18 16:32 03/19/18 16:31 02/18/18 03:00 Assessment/Plan Problem List: (1) Lower gastrointestinal hemorrhage Assessment & Plan: Likely from recent surgical site. resumed pradaxa and likely tore surgical sutures with BM and was unable to clot off bleeding. At bedside patient positioned and anoscopy performed. >800cc blood evacuated upon insertion of anoscope. Once evacuated rectal vault suctioned. Noted Surgical sutures at anal verge into rectal vault in the posterior midline / left. venous oozing and arterial oozing noted from suture line. Rectal vault/ anus packed with gauze for hemostasis. will actively resuscitate patient in ICU. will re-evaluate in a few hours. need to ensure that bleeding is from suture line or if any procedure done higher up. awaiting reports/chart from [facility]. Currently patient stable. HR in the 80's. BP now 100/46. AAOx3. Check labs now. ICD Codes: K92.2 - Gastrointestinal hemorrhage, unspecified SNOMED: [id number], [id number] Jordan Alba Feb 18, 2018 10:57
--- NOTE | 2018-02-18 10:58 | Operative Note - PDOC ---
Operative Note Operative Note Date of Operation/Procedure: Feb 17, 2018 Pre-op Diagnosis: Lower GI bleeding Procedure: 1. Anoscopy Post-op Diagnosis: same as pre-op Surgeon: mykel Specimen: none Complications: none Condition: stable Estimated Blood Loss: volume Drains: none Implant(s) used?: No Indications for Procedure 72M lower GI bleeding Description of Procedure At bedside patient positioned and anoscopy performed. >800cc blood evacuated upon insertion of anoscope. Once evacuated rectal vault suctioned. Noted Surgical sutures at anal verge into rectal vault in the midline. venous oozing and arterial oozing noted from suture line. Rectal vault/anus packed with gauze for hemostasis. will actively resuscitate patient in ICU. will re- evaluate in a few hours. Jordan Alba Feb 18, 2018 10:58
[2018-02-18] MEDS ORDERED: Norco 5mg/325mg tab ORAL PRN (11:00)
[2018-02-18] MEDS ORDERED: Morphine Sulfate 4mg/ml Inj (IV/IM USE ONLY) IVP PRN (11:00)
[2018-02-18] MEDS ORDERED: Morphine Sulfate 2mg/ml Inj IVP PRN (11:00)
[2018-02-18] MEDS ORDERED: HYDROcodone/Acetamin 10/325 tab ORAL PRN (11:00)
--- NOTE | 2018-02-18 11:19 | Diagnostic Imaging Report ---
Indication: Dyspnea Comparison: 02/17/2018 A single view chest radiograph was obtained. Findings: No definite infiltrate or pulmonary vascular congestion identified. Single lead pacemaker again noted in the left. The heart is enlarged. The bones are unremarkable. Impression: No acute disease
[2018-02-18] MEDS: Pantoprazole Inj IVP SCH (13:30)
[2018-02-18 13:42] LABS: FERRITIN 357 NG/ML (8-388)
[2018-02-18 13:52] LABS: % IRON SATURATION 61 % (15-50); IRON 129 ug/dL (50-175); TOTAL IRON BINDING CAPACITY 210 ug/dL (250-450)
--- NOTE | 2018-02-18 13:55 | Cardiology Progress Note ---
Assessment/Plan Assessment/Plan The patient is seen and examined, full consult note will be dictated shortly. Objective Last 24 Hour Vital Signs Date Time Temp Pulse Resp B/P (MAP) Pulse Ox O2 Delivery O2 Flow Rate FiO2 02/18/18 12:00 3.0 02/18/18 12:00 Nasal Cannula 3.0 02/18/18 11:00 75 18 120/65 (83) 100 02/18/18 10:51 84 16 100 02/18/18 09:00 65 21 118/57 (77) 100 02/18/18 08:00 67 02/18/18 08:00 98.6 57 22 119/56 (77) 100 98.6 02/18/18 08:00 3.0 02/18/18 08:00 Nasal Cannula 4.0 02/18/18 07:00 56 23 120/50 (73) 100 02/18/18 06:00 48 22 117/51 (73) 100 02/18/18 05:00 58 20 112/52 (72) 100 02/18/18 04:00 3.0 02/18/18 04:00 57 02/18/18 04:00 Nasal Cannula 4.0 02/18/18 04:00 98.6 69 24 126/49 (74) 100 98.6 02/18/18 03:00 59 20 115/53 (73) 100 02/18/18 02:00 56 17 120/43 (68) 100 02/18/18 01:00 58 19 116/59 (78) 100 02/18/18 00:00 3.0 02/18/18 00:00 58 02/18/18 00:00 98.4 65 22 118/46 (70) 100 98.4 02/18/18 00:00 Nasal Cannula 4.0 02/17/18 23:00 66 22 80/58 (65) 100 02/17/18 22:00 74 24 119/93 (102) 100 02/17/18 21:00 71 25 98/49 (65) 100 02/17/18 20:12 3.0 02/17/18 20:00 Nasal Cannula 4.0 02/17/18 20:00 3.0 02/17/18 20:00 97.9 73 28 94/48 (63) 100 97.9 02/17/18 20:00 65 02/17/18 19:00 80 25 100/39 (59) 100 02/17/18 18:00 80 25 84/49 (61) 100 02/17/18 17:00 93 20 86/60 (69) 100 02/17/18 16:11 Nasal Cannula 3.0 02/17/18 16:00 98.1 45 21 103/49 (67) 100 98.1 02/17/18 15:47 98.2 57 23 86/55 100 Room Air 98.2 02/17/18 15:45 98.2 57 23 86/55 100 Room Air 98.2 02/17/18 14:50 98.0 68 28 99/76 100 Room Air 98.0 02/17/18 14:25 98.4 59 28 79/35 100 Room Air 98.4 02/17/18 14:10 98.0 61 24 85/52 100 Room Air 98.0 Intake and Output 02/17/18 02/18/18 19:00 07:00 Intake Total 1900 ml 1900 ml Output Total 0 ml 4800 ml Balance 1900 ml -2900 ml Intake Oral 0 ml 0 ml IV Total 1900 ml 1100 ml Blood Product 800 ml Output Urine Total 0 ml 1000 ml Estimated Blood Loss 3800 ml # Bowel Movements 2 Laboratory Tests Test 02/17/18 17:40 02/17/18 18:35 02/17/18 20:30 02/18/18 04:00 White Blood Count 13.1 K/UL (4.8-10.8) H 14.7 K/UL (4.8-10.8) H 19.1 K/UL (4.8-10.8) H Red Blood Count 2.35 M/UL (4.70-6.10) L 2.59 M/UL (4.70-6.10) L 3.12 M/UL (4.70-6.10) L Hemoglobin 8.2 G/DL (14.2-18.0) L 8.7 G/DL (14.2-18.0) L 10.2 G/DL (14.2-18.0) L Hematocrit 23.4 % (42.0-52.0) L 25.7 % (42.0-52.0) L 29.3 % (42.0-52.0) L Mean Corpuscular Volume 100 FL (80-99) H 99 FL (80-99) 94 FL (80-99) Mean Corpuscular Hemoglobin 34.7 PG (27.0-31.0) H 33.7 PG (27.0-31.0) H 32.7 PG (27.0-31.0) H Mean Corpuscular Hemoglobin Concent 34.8 G/DL (32.0-36.0) 34.0 G/DL (32.0-36.0) 34.8 G/DL (32.0-36.0) Red Cell Distribution Width 13.2 % (11.6-14.8) 13.4 % (11.6-14.8) 13.9 % (11.6-14.8) Platelet Count 79 K/UL (150-450) L 86 K/UL (150-450) L 88 K/UL (150-450) L Mean Platelet Volume 7.8 FL (6.5-10.1) 7.4 FL (6.5-10.1) 8.4 FL (6.5-10.1) Neutrophils (%) (Auto) 85.6 % (45.0-75.0) H 87.1 % (45.0-75.0) H % (45.0-75.0) Lymphocytes (%) (Auto) 7.4 % (20.0-45.0) L 7.1 % (20.0-45.0) L % (20.0-45.0) Monocytes (%) (Auto) 6.8 % (1.0-10.0) 5.6 % (1.0-10.0) % (1.0-10.0) Eosinophils (%) (Auto) 0.0 % (0.0-3.0) 0.0 % (0.0-3.0) % (0.0-3.0) Basophils (%) (Auto) 0.2 % (0.0-2.0) 0.3 % (0.0-2.0) % (0.0-2.0) Digoxin Level 0.5 NG/ML (0.5-2.0) Prothrombin Time 14.5 SEC (9.30-11.50) H 14.5 SEC (9.30-11.50) H Prothromb Time International Ratio 1.4 (0.9-1.1) H 1.4 (0.9-1.1) H Activated Partial Thromboplast Time 33 SEC (23-33) 22 SEC (23-33) L Fibrinogen 187 mg/dL (200-400) L Sodium Level 142 MMOL/L (136-145) 143 MMOL/L (136-145) Potassium Level 4.8 MMOL/L (3.5-5.1) 4.8 MMOL/L (3.5-5.1) Chloride Level 110 MMOL/L (98-107) H 111 MMOL/L (98-107) H Carbon Dioxide Level 23 MMOL/L (21-32) 23 MMOL/L (21-32) Anion Gap 9 mmol/L (5-15) 9 mmol/L (5-15) Blood Urea Nitrogen 29 mg/dL (7-18) H 33 mg/dL (7-18) H Creatinine 1.2 MG/DL (0.55-1.30) 1.1 MG/DL (0.55-1.30) Estimat Glomerular Filtration Rate mL/min (>60) mL/min (>60) Glucose Level 144 MG/DL (74-106) H 106 MG/DL (74-106) Calcium Level 7.6 MG/DL (8.5-10.1) L 7.8 MG/DL (8.5-10.1) L Total Bilirubin 1.4 MG/DL (0.2-1.0) H 1.2 MG/DL (0.2-1.0) H Direct Bilirubin 0.3 MG/DL (0.0-0.3) 0.3 MG/DL (0.0-0.3) Aspartate Amino Transf (AST/SGOT) 13 U/L (15-37) L 24 U/L (15-37) Alanine Aminotransferase (ALT/SGPT) < 6 U/L (12-78) L 15 U/L (12-78) Alkaline Phosphatase 73 U/L (46-116) 78 U/L (46-116) Total Protein 5.3 G/DL (6.4-8.2) L 5.8 G/DL (6.4-8.2) L Albumin 2.3 G/DL (3.4-5.0) L 2.6 G/DL (3.4-5.0) L Globulin 3.0 g/dL 3.2 g/dL Albumin/Globulin Ratio 0.8 (1.0-2.7) L 0.8 (1.0-2.7) L Differential Total Cells Counted 100 Neutrophils % (Manual) 85 % (45-75) H Lymphocytes % (Manual) 10 % (20-45) L Monocytes % (Manual) 5 % (1-10) Eosinophils % (Manual) 0 % (0-3) Basophils % (Manual) 0 % (0-2) Band Neutrophils 0 % (0-8) Platelet Estimate Decreased L Platelet Morphology Normal Red Blood Cell Morphology Normal Test 02/18/18 12:50 Sickle Cell Screen Pending Haptoglobin Pending Iron Level 129 ug/dL (50-175) Total Iron Binding Capacity 210 ug/dL (250-450) L Percent Iron Saturation 61 % (15-50) H Unsaturated Iron Binding 81 ug/dL (112-346) L Ferritin 357 NG/ML (8-388) Vitamin B12 Level 308 PG/ML (193-986) Methylmalonic Acid Pending Folate 9.5 NG/ML (8.6-58.9) Thyroid Stimulating Hormone (TSH) 1.673 uiU/mL (0.358-3.740) Hepatitis A IgM Antibody Pending Hepatitis B Surface Antigen Pending Hepatitis B Core IgM Antibody Pending Hepatitis C Antibody Pending HIV (1&2) Antibody Rapid Negative (NEGATIVE) Microbiology Date/Time Source Procedure Growth Status 02/17/18 15:30 Rectum VRE Culture Pending Resulted 02/17/18 15:30 Rectum - Preliminary Resulted Iftikhar Vegas MD Feb 18, 2018 13:55
--- NOTE | 2018-02-18 15:02 | Diagnostic Imaging Report ---
Indication:Abdominal pain Technique: Grayscale and duplex Doppler imaging of the abdomen performed. Comparison: None Findings: The liver is unremarkable. No micronodularity is demonstrated along the liver. The gallbladder is contracted but unremarkable. Pancreas and aorta are not seen due to bowel gas. Both kidneys demonstrate multiple small cysts. The spleen is normal in size. There is no biliary ductal dilatation identified. Doppler evaluation of the main portal vein shows patency. There is no ascites. No hydronephrosis seen. Impression: No acute findings. Bilateral renal cysts Pancreas and aorta not seen due to bowel gas.
--- NOTE | 2018-02-18 16:15 | Operative Note - Dictated ---
DATE OF OPERATION: 02/18/2018 PREOPERATIVE DIAGNOSIS: Lower GI bleed. POSTOPERATIVE DIAGNOSIS: Hemorrhage from ano-rectal surgical site OPERATION PERFORMED: 1. Examination under anesthesia. 2. Rigid sigmoidoscopy. 3. Hemostasis of bleeding ano-rectal surgical site. ATTENDING SURGEON: Jordan Alba M.D. UPSET WELDING MACHINE OPERATOR: None. ANESTHESIOLOGIST: Graham Raphael M.D. ANESTHESIA: General BONDED STRAND OPERATOR. ESTIMATED BLOOD LOSS: Minimal. IV FLUIDS: Please see anesthesia records. COMPLICATIONS: None. SPECIMENS: None. WOUND CLASSIFICATION: Class III. ANTIBIOTICS: 2 g Ancef IV given one hour prior to cut time. COUNTS: Sponge and needle count correct x2. INDICATIONS FOR PROCEDURE: This is a 72-year-old male, who had a recent large rectal polyp removed at an outside facility approximately 10 days ago. Postoperatively, the patient was doing very well and resumed his Pradaxa and scheduled medications. A few days later, the patient had a bowel movement and the next morning, he began to note profuse bleeding from his rectum. He came in to the emergency department for evaluation, at which time, he had multiple bouts of bloody diarrhea and was noted to be hypotensive with change in mental status. Therefore, he was admitted to the intensive care unit for resuscitation. The patient was transfused PRBCs, FFP, platelets, and vitamin K. As active resuscitation was given, bedside examination was done in intensive care unit and temporary hemostasis was achieved until the patient could be resuscitated and taken to the operating room for further evaluation. Hemostasis was obtained. The patient was resuscitated. Within a few hours, the patient had significantly improved and decision was made to take the patient to the operating room for examination under anesthesia, rigid sigmoidoscopy, and definitive hemostasis. Risks, benefits, and alternatives were discussed with the patient in detail, who consented to surgery. OPERATIVE NOTE: The patient was taken to the operating room and placed on the operating table in supine position with bilateral arms out. All bony prominences were well-padded. Preoperative time-out was taken identifying the patient, procedure, operative site, and surgical staff. SCDs were placed. Ancef 2 g IV was given one hour prior to cut time. No Laurent catheter was inserted given the patient had voided just prior to entering the operating room. General anesthesia was induced and LMA was placed. The patient was then placed in lithotomy position with all bony prominences well-padded. The anus was then prepped and draped in standard surgical fashion. Anal dilators were used and the perirectal and anal area were evaluated. The prior polyp excision site was identified as anterior midline and the surgical sutures could be noted and had torn open with only slight reapproximation of the tissues remaining. Some of the sutures did look intact. There was bright red blood oozing, but no pulsatile bleeding from the wound bed. The patient had a large hemorrhoid that was not bleeding or thrombosed in the right posterior quadrant. There were some perianal abrasions likely from recent trauma of anoscopy and examination, but otherwise no other significant abnormalities were noted. At this time, the rectal vault was evacuated of old blood and rigid sigmoidoscopy was performed up to about 25 cm and bowel mucosa integrity was evaluated and no abnormalities were noted. No proximal bleeding was seen. Likely bleeding was from the prior surgical site after the Pradaxa was initiated and the patient had a bowel movement and the stitches tore causing bleeding Unfortunately being on Pradaxa, he was unable to form a clot and continued to bleed. The area of excision was in the rectal vault just above the sphincter muscles and bleeding was contained within the rectal vault and needed to be evacuated and hence the large amounts of bleeding noted in rectal vault. At this time, hemostasis was achieved with electrocautery and in the friable mucosa around the hemorrhoid, a 3-0 Vicryl suture was placed for hemostasis. Decision was made not to open up the prior surgical site sutures as they were in place though not completely approximating. With electrocautery, good hemostasis was noted. Local anesthetic was infiltrated throughout the procedure for the patient's comfort. Good hemostasis was noted. At this time, we began the conclusion of our procedure. A dressing was fashioned with Xeroform gauze and Surgicel and placed as a plug into the rectal vault with lubricant for removal with first bowel movement. The patient tolerated the procedure well, was extubated, and taken to the postanesthetic care unit in stable condition. Jordan Alba M.D. DR: ARMIN/BENEDICT JOB#: [id number] CC: [email or web address]
[2018-02-18] MEDS ORDERED: ceFAZolin 2gm/50ml Premix 50 ML IV SCH (17:30)
[2018-02-18] MEDS ORDERED: Tubing IV Secondary IV ONE ×2 (20:14)
[2018-02-18] MEDS ORDERED: NS 275ml ONE (20:14)
[2018-02-18] MEDS ORDERED: NS 500ML ONE (20:14)
[2018-02-18] MEDS ORDERED: Tubing Blood Filter IV ONE (20:14)
--- NOTE | 2018-02-18 23:00 | Consultation ---
DATE OF CONSULTATION: 02/18/2018 CARDIOLOGY CONSULTATION CONSULTING PHYSICIAN: Iftikhar Vegas M.D. REFERRING PHYSICIAN: Gary Dahl M.D. REASON FOR CONSULTATION: Evaluation of malfunctioning pacemaker. HISTORY OF PRESENT ILLNESS: The patient is a very unfortunate 72-year-old gentleman, who presented to the hospital on February 17, 2018 by EMS for lower GI bleed. Apparently, the patient had colon resection with polypectomy of what appeared to be adenocarcinoma of the colon at [facility]. The patient apparently started Pradaxa soon after the procedure and started to bleed on the morning of February 17, 2018. Apparently, the patient had colon resected on February 06, 2018. According to paramedics, he had passed about 100 to 150 mL of blood. He was found to also be hypotensive and near syncopal. The patient was given fluid bolus in the field with improved vital signs. He was brought to the emergency department of [facility] for further evaluation and management. At the time of arrival to the hospital, initial blood pressure was 91/54 mmHg, heart rate was 66, O2 saturation was 97% on room air. A 12-lead electrocardiogram revealed atrial fibrillation, rate of [address] and T-wave abnormalities. Chest x-ray showed presence of a single lead pacemaker. The patient was admitted to intensive care unit given hypovolemic shock due to acute blood loss from the lower GI tract. Cardiology consultation was made for evaluation and management of atrial fibrillation as well as malfunctioning pacemaker. The nurse had brought to my attention that the patient's heart rate drops to rate of 40 without evidence of pacemaker sensing and capturing. PAST MEDICAL HISTORY: 1. Atrial fibrillation. 2. Single lead pacemaker implantation. 3. History of colon adenocarcinoma, status post resection. 4. History of hypertension. ALLERGIES: No known drug allergies. SOCIAL HISTORY: Denies any tobacco, alcohol, or illicit drug use. He was born in [place], worked on cars. REVIEW OF SYSTEMS: HEENT: Denies any headache, but he has dizziness, lightheadedness, and presyncopal events prior to arrival to this hospital. No loss of consciousness. CONSTITUTIONAL: Complains of generalized weakness, but no fever, chills, or night sweats. CARDIOVASCULAR: Denies any chest pain, shortness breath, PND, orthopnea, leg swelling, or palpitation. PULMONARY: Denies any cough, hemoptysis, or wheezing. GASTROINTESTINAL: Denies any abdominal pain, but has fresh blood per rectum. Denies any diarrhea or constipation. No nausea or vomiting. GENITOURINARY: Denies any hematuria, dysuria, or incontinence. NEUROLOGY: Denies any motor dysfunction, sensory deficit, or altered speech. MUSCULOSKELETAL: Denies any myalgia or arthralgia. MEDICATIONS: List of medications at home included Pradaxa 150 mg p.o. twice daily. PHYSICAL EXAMINATION: VITAL SIGNS: Blood pressure was 91/54, respirations of 16, pulse of 62, temperature 98.4 degrees Fahrenheit, and O2 saturation 98% on room air. GENERAL: The patient is a very unfortunate 72-year-old gentleman, who presents to the hospital. Currently, status post hemostasis of bleeding at the surgical incision sites using rigid sigmoidoscopy. HEENT: Atraumatic and normocephalic. Anicteric. Pupils are equal, round, and reactive to light and accommodation. Extraocular muscles intact. NECK: JVP less than 5 cm. No carotid bruit. Carotid upstrokes 2+ bilaterally. CARDIOVASCULAR: Normal S1, S2. Irregularly irregular rhythm. No murmurs, gallops, or rubs. PMI is at fourth intercostal space in the midclavicular line. LUNGS: Clear to auscultation bilaterally. ABDOMEN: Soft, nontender, and nondistended. No hepatosplenomegaly. Positive bowel sounds. EXTREMITIES: No evidence of edema, clubbing, or cyanosis. LABORATORY FINDINGS: At the time of arrival to the hospital, WBC 10.4, hemoglobin 9.4, hematocrit of 22.2, and platelet count of 99. Sodium 138, potassium 4.5, chloride 106, bicarbonate 23, BUN of 24, creatinine 1.3, glucose is 165, calcium is 8.5, and troponin 0.016. INR is 1.5. Digoxin level was 0.5. ASSESSMENT AND PLAN: 1. Permanent atrial fibrillation with very slow ventricular response. According to the nurse, there was lack of pacemaker artifact indicative of oversensing. 2. I would like to obtain interrogation of the device with a [employer] technologist. 3. Of note, the pacemaker is single lead and was placed in September of this year. 4. Review of the devops developer revealed that the pacemaker would sense and appropriately function. 5. I would like to also obtain 2D echocardiography to assess LV systolic and diastolic function. 6. Further therapeutic and diagnostic decision will be based on results of the above tests. 7. Single lead pacemaker implantation likely due to sick sinus syndrome. 8. Lower GI bleed due to active bleeding from the incision sites, the site of polypectomy in combination with Pradaxa use. Apparently, Pradaxa concentration could not be obtained due to . The patient underwent multiple RBC pack transfusion as well as fresh frozen plasma infusion. Later on, today the patient underwent surgical hemostasis with rigid sigmoidoscopy by Dr. Alba. Currently, the patient's hemostasis has been provided and hemodynamically stable. Total amount of time evaluating this patient in the intensive care unit of [facility], reviewing the data, determining the plan of care and discussing with nursing staff and primary care physician was 50 minutes. I would like to thank Dr. Dahl for the courtesy of this consultation. Iftikhar Vegas M.D. DR: ROSANNE JOB#: [id number] CC:
--- NOTE | 2018-02-19 01:00 | Consultation ---
DATE OF CONSULTATION: 02/18/2018 GASTROENTEROLOGY CONSULTATION CONSULTING PHYSICIAN: Viviana Quinn M.D. CHIEF COMPLAINT: I was asked to see this patient by Dr. Gary Dahl for evaluation of gastrointestinal bleeding. HISTORY OF PRESENT ILLNESS: The patient is a pleasant 72-year-old man, who was brought in by ambulance for severe rectal bleeding. The patient is somewhat of a poor historian, but he states that about 3 weeks or so ago, he had a colonoscopy, which showed rectal polyp. About a week or so later, which is about 10 days ago, he had a sigmoidoscopy and this was done by colorectal surgeon at [facility]. Initially this information was not apparent to me, but I called the [facility] and spoke with the patient's emergency room physician there, who confirmed the patient did have a sigmoidoscopy about 10 days ago and a full-thickness resection of rectal polyp was performed and sutures were placed afterwards. The patient apparently had no bleeding and was discharged home. He has just restarted his Pradaxa a day or two before admission and unfortunately now his bleeding has been resumed. Because of the initial profound bleeding, plans were made to proceed with a colonoscopy and not knowing the exact details of his previous results. However, once the information was provided at this visit, rectal polyp was resected and sutured by surgery and colorectal surgeon was called to assist in the management of this lesion. Subsequently, the colorectal surgeon had succeeded in performing the operative surgical repair of the defect. PAST MEDICAL HISTORY: Remarkable for history of atrial fibrillation and colonic polyps as described above although the pathology appears to be only squamocolumnar tissue, which may be from the hemorrhoidal area. History of AICD placement. FAMILY HISTORY: Noncontributory. SOCIAL HISTORY: The patient resides in [facility] and usually gets his care at [facility]. REVIEW OF SYSTEMS: Otherwise negative. PHYSICAL EXAMINATION: GENERAL: A pleasant elderly man, seen in the intensive care unit. HEENT: Normocephalic and atraumatic. Sclerae are anicteric. Oropharynx is clear. NECK: Supple. CHEST: Clear to auscultation. CARDIOVASCULAR: Revealed a regular rate. ABDOMEN: Soft with good bowel sounds. There is no organomegaly. EXTREMITIES: Revealed no edema. LABORATORY DATA: Noted. ASSESSMENT: This patient presents with profuse lower gastrointestinal bleeding from the base of the polyp, which has not been surgically repaired. He needs to be monitored for now and his diet can be advanced slowly. He will likely need an aggressive bowel regimen to reduce the pressure on the hemorrhoidal area in order for the wound to heal. Pradaxa can be restarted once okay from the surgical standpoint. The patient is followed very closely with you. RECOMMENDATIONS: Per above discussion and per orders written in the chart. Thank you for asking me to participate in the care of this patient. Viviana Quinn M.D. DR: LUCIO JOB#: [id number] CC: NATHALIA
--- NOTE | 2018-02-19 16:09 | Cardiology Report ---
APPROVED REPORT EKG Measurement Heart [id number] Atrial fibrillation Moderate voltage criteria for LVH, may be normal variant Prolonged QT Abnormal ECG
--- NOTE | 2018-02-19 16:10 | Discharge Summary ---
Discharge Summary Discharge Summary _ DATE OF ADMISSION: 02/17/2018 DATE OF DISCHARGE: 02/18/2018 REASON FOR ADMISSION: 72 years old male with past medical history of atrial fibrillation, pacemaker, , hypertension, recent polyp removal at 02/06 at [facility], was brought by paramedics for lower GI bleeding. Bleeding started earlier in the morning . Patient passed about 100 -250 ML of blood. Patient was found to be hypotensive ,near syncope. Patient received fluid bolus in the field. Vital signs while lying down improved after fluid bolus. Patient denied abdominal pain. Upon evaluation in emergency room patient was hypotensive, no fever. Laboratory workup i revealed no leukocytosis, hemoglobin 9.4 ,hematocrit 28.2 , platelets 99. INR 1.5. Total bilirubin 1.4 ,stable LFT. Lactic acid 3.4. Troponin negative. EKG revealed atrial fibrillation with nonspecific ST-T wave changes and slow ventricular rate/bradycardia. Chest x-ray revealed no acute findings. Pacemaker noted. Abdominal x-ray revealed gaseous distention of small bowels and distention of transverse colon . Patient received IV bolus , was transfused with fresh frozen plasma, vitamin K provided. However patient vomited and passed out . Antiemetics provided. Patient had another emesis and remained transiently unresponsive with low blood pressure and bradycardia. Patent was critical and not-transferable. Patient was admitted to ICU for further management with diagnoses of lower GI bleeding, atrial fibrillation ,coagulopathy, hypotension, bradycardia with hemorrhagic shock. CONSULTANTS: academic affairs director Dr. Vegas GI specialist kennel helper/oncologist Dr. Harris surgery [facility] COURSE: Patient admitted to ICU. Patient was on IV fluids. Hemodynamic status was closely monitored. Pressors were on board. Blood pressure was closely monitored. No need for pressor. GI specialist and surgeon seen the patient . Report from [place] revealed that patient had flexible sigmoidoscopy on with large rectal polyp excision and polypectomy site was sutured. Pathology showed 2.1 x 1.2 x 0.2 cm polyp, with "squamo-glandular tissue" seen on pathology. Patient subsequently undergone anoscopy with evacuation of more than 800 mL of blood upon insertion of anoscope. Once evacuated, rectal vault was suctioned . Noted surgical sutures at anal verge into rectal vault in the posterior midline / left. Venous and arterial oozing noted from suture line. Rectal vault/anus packed with gauze for hemostasis. Patient subsequently undergone examination under anesthesia via rigid sigmoidoscopy and hemostasis of bleeding of prior surgical incision site . Hemostasis achieved, bleeding stopped. Chest x-ray revealed no acute cardiopulmonary pathology. Supplemental oxygen provided to keep pulse oximetry above 92%. Blood pressure was closely monitored and remained stable. Upon transfer blood pressure 128/55 . Venous Duplex bilateral lower extremities was negative. Job Coaching closely followed . Job Coaching recommended interrogation of the pacemaker and 2-D echocardiogram to assess left ventricular systolic and diastolic function. Rehab Specialist closely followed. Per kennel helper patient had GI bleeding due to anticoagulation/Pradaxa.. Pradaxa -bind was ordered to reverse bleeding, however not available in the hospital pharmacy. Patient undergone transfusion of 2 units of fresh frozen plasma, 5 units of packed red blood cells and 1 unit on platelet pheresis. Prior to transfer , hemoglobin 10.3 hematocrit 29.3. Platelets 88. INR 1.4. No further bleeding. Anticoagulation/Pradaxa was on hold. Abdominal ultrasound revealed unremarkable liver. Hepatitis panel and HIV tests were negative. Patient clinically stabilized : no further bleeding , blood pressure stable. Patient was ready for transfer to [facility] for continuation of care as per his insurance. FINAL DIAGNOSES: Lower GI bleeding likely secondary to Pradaxa Hemorrhagic shock ( with hypotension and bradycardia followed GI bleeding) Coagulopathy Chronic atrial fibrillation Thrombocytopenia Single lead pacemaker implantation, likely due to sick sinus syndrome DISCHARGE MEDICATIONS: List of medication was sent accepting facility DISCHARGE INSTRUCTIONS: Patient was transferred to [facility] per insurance. I have been assigned to dictate discharge summary for this account. I was not involved in the patient's management. Ana Schwab NP Feb 19, 2018 16:10
== END 2018-02-18 20:15 | disposition short-term general hospital (02) | DRG 813 ==
LOC: EDBD 07:40 → EMR 08:13 → EDBEDREQ 13:07 → EDBEDREQSVC 13:07 → EDBEDREQ 13:24 → ICU 14:18
PROC: 30233N1 Transfusion of Nonautologous Red Blood Cells into Peripheral Vein, Percutaneous Approach (ICD-10-PCS; principal; 2018-02-17)
PROC: 30233K1 Transfusion of Nonautologous Frozen Plasma into Peripheral Vein, Percutaneous Approach (ICD-10-PCS; principal; 2018-02-17)
PROC: 30233R1 Transfusion of Nonautologous Platelets into Peripheral Vein, Percutaneous Approach (ICD-10-PCS; principal; 2018-02-17)
PROC: 0W3P8ZZ Control Bleeding in Gastrointestinal Tract, Via Natural or Artificial Opening Endoscopic (ICD-10-PCS; principal; 2018-02-17)
DX: D68.32 Hemorrhagic disorder due to extrinsic circulating anticoagulants (principal); R57.8 Other shock; D62 Acute posthemorrhagic anemia; K91.840 Postprocedural hemorrhage of a digestive system organ or structure following a digestive system procedure; T45.525A Adverse effect of antithrombotic drugs, initial encounter; R00.1 Bradycardia, unspecified; I95.9 Hypotension, unspecified; I48.2 Chronic atrial fibrillation; D69.6 Thrombocytopenia, unspecified; Z95.0 Presence of cardiac pacemaker; Z95.810 Presence of automatic (implantable) cardiac defibrillator; Z79.01 Long term (current) use of anticoagulants; Z87.19 Personal history of other diseases of the digestive system; I10 Essential (primary) hypertension
CPT/HCPCS: 36415; 71045; 74018; 76700; 80053; 80162; 81003; 82248; 82550; 82607; 82728; 82746; 83010; 83540; 83550; 83605; 83690; 83921; 84443; 84484; 85007; 85025; 85384; 85610; 85660; 85730; 86703; 86705; 86709; 86803; 86850; 86900; 86901; 86920; 86927; 87081; 87340; 93005; 93970; 94003; 94150; 96361; 96374; 96376; 99291; 99292; J2250; J2405